=== PATIENT | male | born 1950 | race Caucasian/White ===

== ENCOUNTER 2024-08-13 10:25 | Day surgery (SDC) | payer OTHER, SELFPAY ==
--- NOTE | 2024-08-11 11:40 | EKG_ITS ---
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
[2024-08-11 13:41] LABS: Alanine Aminotransferase 26 U/L (10-49); Albumin, Serum 4.4 gm/dL (3.4-4.8); Albumin/Globulin Ratio 1.6 (1.2-2.2); Alkaline Phosphatase 83 U/L (46-116); Anion Gap 6 (7-16); Aspartate Amino Transferase 24 U/L (0-34); BUN/Creatinine Ratio 15 Ratio (12-20); Bilirubin,Total 0.4 mg/dL (0.3-1.2); Blood Urea Nitrogen 15 mg/dL (9-23); Calcium 9.8 mg/dL (8.3-10.6); Calcium (Corrected) 9.8 mg/dL (8.5-10.1); Carbon Dioxide 30.3 mMol/L (20.0-31.0); Chloride 108 mMol/L (98-107); Globulin 2.8 gm/dL (2.3-3.5); Glucose 91 mg/dL (74-106); Osmolality,Calculated 287 (275-295); Potassium 4.3 mMol/L (3.4-5.1); Sodium 144 mMol/L (136-145); Total Protein 7.2 gm/dL (5.7-8.2); eGFR > 60 See Note
[2024-08-12 13:05] VITALS: BMI 23.7
[2024-08-13] VITALS (8 sets, daily range): BP systolic 104–144; BP diastolic 66–87; PULSE 63–86; RESP 18–22; TEMP 36.1–36.9; O2SAT 95–98; BMI 22.3
[2024-08-13] MEDS: ALBUTEROL RT 2.5 MG/3 ML NEBU INH (11:22)
[2024-08-13] MEDS: RINGERS LACTATED 1000 ML 1,000 ML 20 ML IV (12:08)
--- NOTE | 2024-08-13 12:52 | SUR.PHASEII ---
pt received from OR in recovery bay 1. pt asleep but responds to voice, breathing unlabored on room air. v/s stable. report received from Samia BALLESTEROS.
--- NOTE | 2024-08-13 13:15 | SUR.PHASEII ---
pt able to tolerate oral fluids without diffuculty swallowing or nausea/vomiting.
--- NOTE | 2024-08-13 14:00 | SUR.PHASEII ---
pt awake and alert, breathing unlabored on room air. v/s stable. pt able to ambulate to wheelchair with steady gait. d/c instructions given with Dennise in room, all questions answered. pt d/c via wheelchair with all belongings.
== END 2024-08-13 14:00 | disposition home or self-care (01) ==
PROVIDERS: Anesthesiology; PCP Family Medicine; Referring Provider Internal Medicine Gastroenterology; Visit Provider Internal Medicine Gastroenterology
PROC: 0DJD8ZZ Inspection of Lower Intestinal Tract, Via Natural or Artificial Opening Endoscopic (ICD-10-PCS; CPT 45378; principal; 2024-08-13 11:30)
DX: Z12.11 Encounter for screening for malignant neoplasm of colon (principal); K64.9 Unspecified hemorrhoids; K57.30 Diverticulosis of large intestine without perforation or abscess without bleeding; D12.5 Benign neoplasm of sigmoid colon; Z01.810 Encounter for preprocedural cardiovascular examination
CPT/HCPCS: 45385; 45380; 36415; 80053; 93005; A4217; J7120

== ENCOUNTER → 2024-09-25 | Outpatient (BNVA) | payer OTHER, SELFPAY | END | disposition home or self-care (01) | PROVIDERS: PCP Family Medicine; Referring Provider Family Medicine; Visit Provider Urology | DX: N40.1 Benign prostatic hyperplasia with lower urinary tract symptoms (principal); N13.8 Other obstructive and reflux uropathy; R97.20 Elevated prostate specific antigen [PSA]; Z80.42 Family history of malignant neoplasm of prostate; J44.9 Chronic obstructive pulmonary disease, unspecified; J30.9 Allergic rhinitis, unspecified; Z85.828 Personal history of other malignant neoplasm of skin; F17.210 Nicotine dependence, cigarettes, uncomplicated | CPT/HCPCS: 81003; 99212; G0463 ==

== ENCOUNTER → 2024-11-06 | Outpatient (BNVA) | payer OTHER, SELFPAY | END | disposition home or self-care (01) | PROVIDERS: PCP Family Medicine; Referring Provider Family Medicine; Visit Provider Urology | DX: N40.1 Benign prostatic hyperplasia with lower urinary tract symptoms (principal); R39.12 Poor urinary stream; J44.9 Chronic obstructive pulmonary disease, unspecified; F17.210 Nicotine dependence, cigarettes, uncomplicated | CPT/HCPCS: 51741; 51798 ==

== ENCOUNTER → 2024-12-16 | Outpatient (CLI) | payer OTHER, SELFPAY ==
--- NOTE | 2024-12-16 12:00 | XR_ITS ---
Examination: CT chest, without intravenous contrast. Sagittal and coronal 2-D reconstructions. Exam date and time: 05/18/2025 1208 hours Comparison January 25, 2024 INDICATIONS: Smoking history 50 years, pulmonary nodules on CT chest December 16, 2024 CTDI:vol (mGy) 9.3 DLP: (mGycm) 389 Technique: Multiple 3.0 mm axial sections of the chest to been obtained. Bone and lung density settings are obtained. Sagittal and coronal 2-D reconstructions have been obtained. Low dose protocols were performed. One or more of the following dose reduction techniques were used; automated exposure control, adjustment of the mA and/or KV according to patient size, use of iterative reconstruction technique. Findings: AP dimension ascending thoracic aorta 4 cm Pulmonary artery segments are not enlarged No interval paratracheal tracheobronchial or bronchopulmonary adenopathy Numerous bilateral pulmonary nodules again depicted including new 10 mm pulmonary nodule right upper lobe and new 10 mm pulmonary nodule left upper lobe No pneumonia or pulmonary edema Liver is irregular in contour with small liver cysts in the left lobe No pancreatic mass No hydronephrosis or renal calculi Prominent osteopenia IMPRESSION: Progression of pulmonary nodular metastatic disease
== END | disposition home or self-care (01) ==
LOC: CCTX 11:47
PROVIDERS: PCP Family Medicine; Referring Provider Internal Medicine; Visit Provider Internal Medicine
DX: R91.8 Other nonspecific abnormal finding of lung field (principal); J44.9 Chronic obstructive pulmonary disease, unspecified; R06.02 Shortness of breath
CPT/HCPCS: 71250

== ENCOUNTER → 2025-01-26 | Outpatient (BNVA) | payer OTHER, SELFPAY | END | disposition home or self-care (01) | PROVIDERS: PCP Family Medicine; Referring Provider Family Medicine; Visit Provider Urology | DX: N40.1 Benign prostatic hyperplasia with lower urinary tract symptoms (principal); N13.8 Other obstructive and reflux uropathy; Z80.42 Family history of malignant neoplasm of prostate; C44.91 Basal cell carcinoma of skin, unspecified; J44.9 Chronic obstructive pulmonary disease, unspecified; E66.9 Obesity, unspecified; Z68.29 Body mass index [BMI] 29.0-29.9, adult; F17.210 Nicotine dependence, cigarettes, uncomplicated; Z85.828 Personal history of other malignant neoplasm of skin | CPT/HCPCS: 81003; 99212; G0463 ==

== ENCOUNTER 2025-03-25 09:54 | Outpatient (RCR) | payer OTHER, SELFPAY ==
--- NOTE | 2025-03-25 11:35 | CTCCONSULT_ITS ---
[facility] [address] [place], [place] [address] Consultation Note Date: 03/25/2025 MR#: [id number] Name: STEPHANIE MOHAN : 1950 Dx: C79.51 Secondary malignant neoplasm of bone Attending physician. Drew Leung MD Living [facility] Reason for consultation: Metastatic CA to spine status post T2-T6 posterior resection of tumor referred to the cancer treatment center. 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 CT scan chest on 12/16/2024 showed progression of pulmonary nodular disease including new 10 mm right upper lobe and also similar sized lesion left upper lobe with subcentimeter lesions elsewhere. PET scan 02/05/2025 revealed large 3.9 cm new irregular hypermetabolic expansile bony lesion right T4 transverse process and lamina SUV 30 with intraspinal tumor extension and severe central canal stenosis at T4 level. There was also increase in size of irregular pulmonary nodule anterior left upper lobe larger in size and new multiple small bilateral upper lobe and lower lobe pulmonary nodules of various sizes. Patient was urged to go to [facility] where he was admitted and underwent T2-T6 posterior instrumentation 02/27/2025. Lung biopsy was considered too high risk for pneumothorax due to COPD. 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 Had colonoscopy August 2024 with 1 polyp removed benign. AFP CA 19?9 CA125 CEA PSA LDH reportedly were within normal limits. According to patient still another PET scan and MRI likely of brain was ordered while he was inpatient. Port was placed prior to patient's discharge. Past Medical History: COPD Meds Trelegy albuterol Allergies none to meds Family history. Maternal grandmother had stomach cancer Social history. 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 Physical Exam: General: Well-appearing gentleman no acute distress HEENT: Atraumatic no cephalic extraocular is intact no oral lesion no cervical or supraclavicular adenopathy. CV: Chest clear to auscultation heart regular rate and rhythm ABD: Soft no organomegaly or tenderness Back. Well-healing scar upper back EXT: No signs of clubbing or edema. Assessment:1. Patient with adenocarcinoma likely of pulmonary origin according to immunostains, with significant T4 involvement with central canal stenosis status post T2-T6 decompression surgery at [facility] 02/27/2025. 2. PET scan prior to surgery shows extensive and progressive lung lesions, with new PET reportedly done at [facility] along with MRI likely of brain results not immediately known to us. Will attempt to get a copy soon. 3. Had colonoscopy done earlier this year unremarkable with normal tumor markers performed at [facility] including AFP CA125 CA 19?9 PSA and CEA. 4. Neurosurgeon who performed surgery 3 weeks ago will be seeing patient for follow-up next week for what appears to be well-healing scar on his upper back. 5. Shall schedule patient for treatment to the postop site upper thoracic region 3000 cGy in 10 fractions via VMAT. Side effects discussed. 6. I requested PD-L1 and foundation 1 on the path sample information of which should assist medical oncologist Dr. Martinez who will be seeing patient soon. Port has already been placed. 7. Thank you very much for allowing me to evaluate and manage this very nice person.. Cc: Drew Castillo MD [facility] Electronically signed by: Jeff Wells MD, DABR 03/25/2025 11:33 AM
--- NOTE | 2025-03-25 11:37 | CTCTXPLN_ITS ---
[facility] [address] [place], [place] [address] Physician Clinical Treatment Planning Note Date of Service: 03/25/2025 Name: STEPHANIE MOHAN : 1950 The patient has agreed to proceed with Radiation therapy. Tests and supporting medical records were interpreted to assist in defining the tumor location and extent of disease. Further imaging will be necessary to contour and delineate the volume to which the XRT will be provided. A. Treatment Intent: Palliative B. Modality: 6 MV C. Requested Technique: VMAT D. Treatment Site: T2-T6 E. Critical structures to be contoured on plan: F. In order to accomplish this plan, I am ordering/Prescribing the followin. Simulations (s) will be performed to accomplish a reproducible treatment position, to determine optimal treatment portals/beam arrangements, to design beam modifying devices and verify treatment portals on patient prior to the commencement of Radiation Therapy. C7-T7 2. Devices; for immobilization and beam shaping: Aqua Plast 3. CT Guidance for placement of XRT young Scan area: 4. Portal images Frequency: 5. Invivo transit dose measurement once per week on all VMAT patients. 6. Special Physics Consult Requested for: 7. Other requests: chemoradiation G. Dose Objectives: Curative Electronically signed by: Jeff Wells M.D. 03/25/2025 11:35 AM
--- NOTE | 2025-03-25 11:39 | CTCTXPLNST_ITS ---
Radiation Oncology Treatment Planning Sheet Name: STEPHANIE MOHAN MR#: [id number] : 1950 Dx: C79.51 Secondary malignant neoplasm of bone Date of Service: 03/25/2025 Account #: ?? Pt Treatment Intent: curative palliative other: Stage: Procedure CPT # Ordered Spec. Procedure 52075 1 Xie Complex (set-up) 00049 C-7 ? T7 ( treating T2- T 6) 1 Xie Simple 52653 IMRT Plan 79487 1 MLC Devices VMAT 54104 3 Xie 3 D 65377 TRTMT dev Complex 70639 Aqua Plast 1 TRTMT dev simple 34662 [place] [address] 6 Special Dosimetry 96567 Spec Physics 31339 Port Films 05917 SRS Cranial/1FX 07267 SBR 5 FX or Less /ex: 5 = 5 fx 73627 IMRT Simple 50466 3000 10 IMRT Complex 56937 IGRT 84522 10 Rad del Hashplex 6- 57206 Rad del Hashplex 05-27 29425 Cont Med Physics 02021 2 Treatment Planning 87166 1 Weekly Evaluation 46824 2 Rad del Hashplex 20 mev 21011 Special Port Plan 53929 TRTMT dev inter 07874 Isodose Complex 75440 Isodose simple 99083 Resp Motion Mgmt Simulation 22082 Placement of Fiducial Markers 75062 Electronically Signed By: Jeff Wells MD, RIMAR 03/25/2025 11:37 AM
== END 2025-04-07 23:59 | disposition home or self-care (01) ==
LOC: SCTC 09:54
PROVIDERS: PCP Family Medicine; Referring Provider Radiology Therapeutic Radiology; Visit Provider Radiology Therapeutic Radiology
DX: C34.90 Malignant neoplasm of unspecified part of unspecified bronchus or lung (principal); C79.51 Secondary malignant neoplasm of bone
CPT/HCPCS: 99214; G0463

== ENCOUNTER 2025-04-10 17:48 | Emergency (ER) | payer OTHER, SELFPAY ==
[2025-04-10 18:06] VITALS: BP 120/73; PULSE 116; RESP 26; TEMP 36.8; O2SAT 97; BMI 22.9
--- NOTE | 2025-04-10 18:06 | EKG_ITS ---
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
--- NOTE | 2025-04-10 18:14 | PD.EDADULT ---
ED General RME/HPI General Chief complaint: Shortness of Breath/Dyspnea Stated complaint: SOB Time Seen by Provider: 04/10/25 18:04 Arrival date/time: 04/10/25 17:48 RME / HPI RME / HPI narrative: 74 y/o male with PMHx of COPD (Gold stage E) and lung cancer comes in for an evaluation of nonexertional shortness of breath, [place], worsening, with associated dry cough but no chest pain. Patient reports that he was recently diagnosed with lung cancer and has been seeing Dr. Wells and Dr. Martinez at the cancer treatment center and recently got a port for chemotherapy and is scheduled to be set for radiation. He denies any fever or chills. Denies any recent travel or anyone around him feeling like this. He denies any sick contacts. Denies any history of heart failure. 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 Denies any swelling in his leg. He currently does not smoke. No other complaints at this time. Related Data Home Medications ?Medication ?Instructions ?Recorded ?Confirmed albuterol sulfate 90 mcg/actuation 2 inh inhalation Q4H PRN shortness 08/12/24 01/26/25 aerosol inhaler of breath or wheezing fluticasone fur. 100 mcg-umeclid 1 inh inhalation Q24H 08/12/24 01/26/25 62.5 mcg-vilant 25 mcg inhalat.powder (Trelegy Ellipta) Previous Rx's ?Medication ?Instructions ?Recorded azithromycin 250 mg tablet 250 mg PO QDAY 4 days #4 tabs 04/10/25 prednisone 10 mg tablet 20 mg (2 x 10 mg) PO QDAY 6 days 04/10/25 #12 tabs Allergies Allergy/AdvReac Type Severity Reaction Status Date / Time No Known Allergies Allergy Verified 01/26/25 10:58 Review of Systems Review of Systems Narrative Review of Systems: Constitutional: No fever, chills, fatigue, weakness, weight loss HEENT: No eye pain, vision loss, ear pain, hearing loss, dysphagia, Cardiovascular: No chest pain, palpitations, edema, pain with walking Respiratory: + cough, + shortness of breath, no wheezing GI: No NVD, abdominal pain, constipation, blood in stool, loss of appetite, heartburn Extremities: No presence of pitting edema MSK: No back pain, joint pain, joint swelling Neuro: No dizziness, numbness, weakness, headaches, seizures, tremors Psych: No anxiety, depression ED Exam Narrative Physical exam: General: AAOx3, NAD, appears barrel chested HEENT: Moist mucous membranes, conjunctiva clear, EOMI, PERRLA, Cardiovascular: S1, S2, radial pulses +2 bilat, tachycardic Pulmonary: Wheezing heard throughout lung young, poor airway entry, no crackles auscultated GI: No tenderness to light or deep palpitation, no guarding, rigidity, rebound tenderness or distension Extremities: No presence of trace or pitting edema in lower extremities bilaterally, dorsalis pedis pulses +2 bilaterally Neuro: AAOx3, no focal motor or sensory deficits in the UE or LE bilat Psych: Good judgement, thought and behavior Course Quality Measures none Orders Category Date Time Status Bedside COVID-19 Antigen Test NOW Care 04/10/25 18:40 Active Bedside Influenza A&B Antigen Test NOW Care 04/10/25 18:[address] Screening NOW Care 04/10/25 19:24 Active EKG (ED ONLY) *Do not use* NOW Care 04/10/25 18:06 Completed Insert IV NOW Care 04/10/25 18:[address] abdomen pelvis w con Stat Exams 04/10/25 19:[address] angio chest Stat Exams 04/10/25 19:24 Completed EKG (ED Only) Stat Exams 04/10/25 18:06 Draft XR chest 1V portable Stat Exams 04/10/25 18:32 Completed B-Type Natriuretic Peptide Stat Lab 04/10/25 18:22 Completed Blood Culture (Lab) Stat Lab 04/10/25 18:25 Received C-Reactive Protein Stat Lab 04/10/25 18:22 Completed CBC Stat Lab 04/10/25 18:22 Completed Comprehensive Metabolic Panel Stat Lab 04/10/25 18:22 Completed D-Dimer Stat Lab 04/10/25 18:00 Completed Lactic Acid [Lactate (Lactic Acid)] Stat Lab 04/10/25 18:40 Completed Magnesium Stat Lab 04/10/25 18:22 Completed Procalcitonin Stat Lab 04/10/25 18:22 Completed Sed Rate (ESR) Stat Lab 04/10/25 18:22 Completed Sputum Culture and Gram Stain Stat Lab 04/10/25 20:03 Results Troponin I Stat Lab 04/10/25 18:22 Completed UA, C/S IF [Urinalysis, C/S if Indicated] Stat Lab 04/10/25 21:07 Completed ALBUTEROL RT 3ml [Proventil Rt 3ml] Med 04/10/25 18:14 Discontinued 2.5 mg INH X1 ONE Azithromycin Inj [Zithromax Inj] 500 mg Med 04/10/25 18:48 Discontinued Sodium Chloride 0.9% 250 ml [Ns] 250 ml IV X1 Levalbuterol Rt [Xopenex Rt Marlen] Med 04/10/25 18:40 Discontinued 2.5 mg INH X1 ONE Magnesium Sulfate 2 GM Ivpb [Magnesium Sulfate Ivpb] Med 04/10/25 18:40 Discontinued 2 gm in 50 ml IV X1 MethylPREDNISolone.* [SoluMEDROL Inj] Med 04/10/25 18:40 Discontinued 125 mg IVP X1 ONE Sodium Chloride Rt Marlen 0.9% [NS Rt Marlen 0.9%] Med 04/10/25 18:40 Active 6 ml INH PRN PRN Sodium Chloride Rt Marlen 10% [NS Rt Marlen 10%] Med 04/10/25 20:01 Discontinued 5 ml INH X1 ONE Oxygen Delivery NOW RT 04/10/25 18:05 Active Sputum Induction PRN RT 04/10/25 20:15 Ordered Vital Signs Vital signs: Vital Signs Temperature 98.2 F 04/10/25 18:06 Pulse Rate 116 H 04/10/25 18:06 Respiratory Rate 26 H 04/10/25 18:06 Blood Pressure 120/73 04/10/25 18:06 Pulse Oximetry (%) 97 04/10/25 18:06 Oxygen Delivery Method Nasal Cannula 04/10/25 18:06 Oxygen Flow Rate 3 04/10/25 18:06 Discharge Plan Plan Patient Disposition: HOME (Self Care) Health Concerns: Discharge instructions Follow-up with your PCP within 1 week Take your prednisone, steroid, as prescribed Take your Azithromycin as prescribed Follow up with your Cancer team, Dr. Wells and Dr. Martinez outpatient AVOID SMOKING and SECOND HAND SMOKING EXPOSURE Return to ED if your symptoms worsen or return Prescriptions/Referrals Prescriptions/Med Rec: New azithromycin 250 mg tablet 250 mg PO QDAY 4 Days Qty: 4 0RF Rx Instructions: Take one tablet by mouth every day prednisone 10 mg tablet 20 mg PO QDAY 6 Days Qty: 12 0RF Rx Instructions: Take two tablets by mouth every day Continued albuterol sulfate 90 mcg/actuation HFA aerosol inhaler 2 inh INHALATION Q4H PRN (Reason: shortness of breath or wheezing) Sky Gilletteta 100-62.5-25 mcg blister with device 1 inh INHALATION Q24H Patient Comments: INHALE 1 PUFF BY MOUTH ONCE DAILY Referrals: Drew Leung MD [Primary Care Provider] - In 1 week Problem List Clinical Impression: Acute exacerbation of chronic obstructive airways disease Patient/Caregiver Discharge Instructions Education Materials: Cancer Lung Dc, COPD Meds Print Language: Austrian Stand Alone Forms: Alicia Award Info., Patient Portal Info Letter MDM Narrative MDM hospital course (for use when minimal MDM required): 1814: EKG, chest x-ray, labs, breathing treatments, azithromycin, steroid ordered 2004: Continue with breathing treatments, reviewed chest x-ray which shows parenchymal disease, EKG reviewed as above, labs reviewed, will initiate sputum culture. COVID and FLU negative. 2246: CTA negative. Pt on home oxygen baseline, saturating 97%. Pt medically cleared for discharge. Will initiate prednisone and Zithromax outpatient with strict ER precautions. EKG Interpretation EKG #1: EKG Interpretation: QT 315, sinus tachycardia, no STEMI, Medication Administration(s) Medication Administration History Sodium Chloride (Sodium Chloride Rt Marlen 0.9% 3 Ml Nebu) 6 ml INH PRN PRN PRN Reason: SOLN Stop: 05/10/25 18:39 Last Admin: 04/10/25 19:00 Dose: 6 ml Documented By: NAOMI Discontinued Medications Albuterol (Albuterol Rt 2.5 Mg/3 Ml Nebu) 2.5 mg INH X1 ONE Stop: 04/10/25 18:15 Last Admin: 04/10/25 18:25 Dose: 2.5 mg Documented By: ARGENIS Magnesium Sulfate (Magnesium Sulfate Ivpb) 2 gm in 50 mls @ 25 mls/hr IV X1 ONE Stop: 04/10/25 20:39 Last Infusion: 04/10/25 21:55 Dose: Infused Documented By: Admin: 04/10/25 19:55 Dose: 25 mls/hr Documented By: KASIE Azithromycin 500 mg/ Sodium (Chloride) 250 mls @ 250 mls/hr IV X1 ONE Stop: 04/10/25 19:47 Last Infusion: 04/10/25 20:15 Dose: Infused Documented By: Admin: 04/10/25 19:13 Dose: 250 mls/hr Documented By: KASIE Levalbuterol HCl (Levalbuterol Rt 1.25 Mg/0.5 Ml Nebu) 2.5 mg INH X1 ONE Stop: 04/10/25 18:41 Last Admin: 04/10/25 19:00 Dose: 2.5 mg Documented By: NAOMI Methylprednisolone Sodium Succinate (Methylprednisolone Sod Succ 62.5 Mg/Ml 2ml Vial) 125 mg IVP X1 ONE Stop: 04/10/25 18:41 Last Admin: 04/10/25 19:09 Dose: 125 mg Documented By: KASIE Sodium Chloride (Sodium Chloride Rt 10% 15 Ml Nebu) 5 ml INH X1 ONE Stop: 04/10/25 20:02 Last Admin: 04/10/25 21:35 Dose: Not Given Documented By: NAOMI Non-Admin Reason: Other, see note
[2025-04-10 18:25] VITALS: PULSE 112; PULSE 115; RESP 22; O2SAT 100
[2025-04-10] MEDS: ALBUTEROL RT 2.5 MG/3 ML NEBU INH (18:25)
[2025-04-10 18:26] VITALS: PULSE 124; RESP 28; O2SAT 95
--- NOTE | 2025-04-10 18:32 | XR_ITS ---
Examination: AP chest single view Technique: Upright AP chest portable chest single view Date and time: April 10, 2025, 1835 hrs. Indications: Shortness of breath today. Comparison: July 19, 2023 Findings: COPD with significant hyperexpansion Parenchymal disease in the left upper lobe which may be cavitary Right internal jugular Port-A-Cath tip satisfactory position Normal heart size Impression: Suspicious for cavitary parenchymal disease left upper lobe, consider repeat CT chest without contrast follow-up
[2025-04-10 18:36] LABS: Basophils # (Auto) 0.1 Thou/mm3 (0.0-0.2); Basophils % (Auto) 1 % (0-2.5); Eosinophils # (Auto) 0.0 Thou/mm3 (0.0-0.5); Eosinophils % (Auto) 0 % (0-10); Hematocrit 38.8 % (41.0-53.0); Hemoglobin 13.3 g/dL (13.5-16.0); Immature Granulocytes Auto 0.06 Thou/mm3 (0.00-0.00); Lymphocytes # (Auto) 1.0 Thou/mm3 (1.0-4.8); Lymphocytes % (Auto) 6 % (10-50); Mean Corpuscular HGB Conc 34.3 g/dl (31.0-37.0); Mean Corpuscular Hemoglobin 33.8 pg (25.0-35.0); Mean Corpuscular Volume 99 fL (80-100); Monocytes # (Auto) 1.2 Thou/mm3 (0.0-0.8); Monocytes % (Auto) 8 % (0-12); Neutrophils # (Auto) 13.0 Thou/mm3 (1.8-7.7); Neutrophils % (Auto) 85 % (37-80); Nucleated Red Blood Cell # 0.00 Thou/mm3 (0.00-0.00); Nucleated Red Blood Cell % 0 /100 WBC (0); Platelet Count 164 Thou/mm3 (140-440); RDW Standard Deviation 47.7 fL (35.1-43.9); Red Blood Count 3.94 Miln/mm3 (4.50-5.90); White Blood Count 15.3 Thou/mm3 (3.8-10.6)
[2025-04-10 18:50] LABS: B-Type Natriuretic Peptide 23 pg/mL (0-100)
[2025-04-10] MEDS: SODIUM CHLORIDE RT SOL 0.9% 3 ML NEBU 6 ML INH (19:00)
[2025-04-10] MEDS: LEVALBUTEROL RT 1.25 MG/0.5 ML NEBU 2.5 MG INH (19:00)
[2025-04-10 19:03] LABS: Alanine Aminotransferase 10 U/L (10-49); Albumin, Serum 4.1 gm/dL (3.4-4.8); Albumin/Globulin Ratio 1.6 (1.2-2.2); Alkaline Phosphatase 74 U/L (46-116); Anion Gap 8 (7-16); Aspartate Amino Transferase 14 U/L (0-34); BUN/Creatinine Ratio 13 Ratio (12-20); Bilirubin,Total 0.9 mg/dL (0.3-1.2); Blood Urea Nitrogen 12 mg/dL (9-23); Calcium 9.1 mg/dL (8.3-10.6); Calcium (Corrected) 9.1 mg/dL (8.5-10.1); Carbon Dioxide 23.8 mMol/L (20.0-31.0); Chloride 108 mMol/L (98-107); Creatinine (Component) 0.9 mg/dL (0.6-1.3); Estimated Creatinine Clearance 79.3 mL/min (>60); Globulin 2.5 gm/dL (2.3-3.5); Glucose 128 mg/dL (74-106); Magnesium 1.9 mg/dL (1.6-2.6); Osmolality,Calculated 281 (275-295); Potassium 3.9 mMol/L (3.4-5.1); Sodium 140 mMol/L (136-145); Total Protein 6.6 gm/dL (5.7-8.2); Troponin I < 0.020 ng/mL (0.0-0.045); eGFR > 60 See Note
[2025-04-10 19:03] LABS: D-Dimer 1590 ng/mL (<600)
[2025-04-10 19:09] VITALS: PULSE 116; RESP 24; O2SAT 100
[2025-04-10] MEDS: MethylPREDNISolone SOD SUCC 62.5 MG/ML 2ML VIAL 125 MG IVP (19:09)
[2025-04-10] MEDS: AZITHROMYCIN INJ 500 MG in SODIUM CHLORIDE 0.9% 250 ML 250 ML 250 MG IV (19:13)
--- NOTE | 2025-04-10 19:18 | PC.RT ---
Attempted ABG x2 and unsucccessful. Pt said he did not want any more attempts.Informed Dr. Maynard made aware.
--- NOTE | 2025-04-10 19:24 | XR_ITS ---
Examination: CTA chest with intravenous contrast 2-D reconstructions 3-D reconstructions, vascular Date and time of exam: April 10, 2025, 2032 hrs., Comparison December 16, 2024 Indications: Chest pain abdominal pain shortness of breath today, diagnosis smoking history, progression of pulmonary nodular metastatic disease on CT chest December 16, 2024 CTDI: vol (mGy) 26.39 DLP: (mGycm) 638 Technique: Multiple axial sections of the thorax have been obtained. 3 mm slice thickness, from below the hemidiaphragms to above the apices of the lungs. Mediastinal and lung density settings have been obtained. 2-D sagittal and coronal reconstructions. 3-D angiographic renderings, 3-D volume renderings, 3D post processing, vascular maximum intensity projections obtained. Contrast administered is 100 cc Isovue-370. Low dose protocols were performed. One or more of the following dose reduction techniques were used; automated exposure control, adjustment of the mA and/or KV according to patient size, use of iterative reconstruction technique. Findings: No thoracic aortic aneurysmal dilatation or dissection No pulmonary artery filling defects Mild bilateral hilar lymphadenopathy COPD with multiple areas of airspace destruction Enlarging multiple pulmonary nodules bilaterally consistent with progression of pulmonary nodular metastatic disease No lobar pneumonia or pulmonary edema Liver mildly irregular in contour no focal liver or splenic lesions noted No pancreatic mass Minimal nodular thickening of the adrenal glands Kidneys partially visualized no hydronephrosis Prominent osteopenia with upper thoracic laminectomies and thoracic partial fusion Impression: Negative for pulmonary artery emboli Progression of pulmonary nodular metastatic disease compared with December 16, 2024
--- NOTE | 2025-04-10 19:25 | XR_ITS ---
Examination: CT abdomen with intravenous contrast CT pelvis with intravenous contrast 2-D coronal reconstructions 2-D sagittal reconstructions Date and time of exam:April 10, 2025, 2032 hrs[address] chest December 16, 2024. Indications: Smoking history 50 years, progression of pulmonary nodular metastatic disease on CT chest December 16, 2024, shortness of breath today abdominal pain CTDI: vol (mGy) 11.3 DLP: (mGycm) 623 Technique: Multiple axial sections of the abdomen and pelvis have been obtained. 64 slice high-resolution scanner used. 3 mm axial sections have been obtained, post intravenous injection 60 cc Isovue-370 2-D sagittal coronal reconstructions Nodose protocols, automated exposure control, adjustment MA KV according to patient size Findings: Small bowel cysts upper left lobe of the liver No solid liver lesions No gallstones Spleen is not enlarged No pancreatic mass Nodular thickening left adrenal gland Aorta normal size No renal or ureteral calculi, no hydronephrosis No bowel obstruction Normal appendix Colonic diverticulosis, no diverticulitis Transverse prostate dimension 4.9 cm Mild thickening urinary bladder wall up to 5 mm Prominent osteopenia with moderate to advanced degenerative disc disease L4-L5, L5-S1 Impression: No solid liver lesions Minimal nodular thickening left adrenal gland No abdominal or pelvic lymphadenopathy No renal or ureteral calculi, no hydronephrosis Normal appendix Colonic diverticulosis, no diverticulitis Moderate prostatomegaly Mild thickening urinary bladder wall, consider cystitis, early urinary tract outflow obstruction secondary to prostatomegaly
[2025-04-10 19:46] LABS: Sed Rate (ESR) 37 mm/hr (0-20)
[2025-04-10 19:55] LABS: Lactate (Lactic Acid) 1.0 mMol/L (0.4-2.0)
[2025-04-10] MEDS: Magnesium Sulfate 2 GM Ivpb 2 GM/50 ML BAG IV (19:55)
--- NOTE | 2025-04-10 19:55 | PC.NURSE ---
Pt became winded trying to cough up phglem, requested an oxymask. Pt placed on an oxymask at 4liters and RT/MD notified.
[2025-04-10 20:01] LABS: C-Reactive Protein 23.0 mg/dL (0.0-0.9); Procalcitonin 0.26 ng/ml (0.0-0.49)
[2025-04-10 21:03] VITALS: BP 114/67; PULSE 114; RESP 22; TEMP 36.8; O2SAT 99
[2025-04-10 21:28] LABS: Collection Type, Urine Clean Catch
--- NOTE | 2025-04-10 21:35 | PC.RT ---
LESLI Burnett was able to collect sputum, pt had expectorated and sent to lab.
[2025-04-10 21:49] LABS: Bilirubin,Urine Negative (Negative); Blood,Urine 1+ (Negative); Clarity,Urine Clear (Clear/Hazy); Color,Urine Yellow (Lt Yel-Yel); Culture Indicated,Urine Not Indicated; Glucose, Urine Negative (Negative); Ketones,Urine 2+ (Negative); Leukocyte Esterase,Urine Negative (Negative); Nitrite,Urine Negative (Negative); PH,Urine 6.0 (5.0-7.0); Protein,Urine Trace (Neg - Trace); RBC,Urine 8 /hpf (0-3); Squamous Epithelial Cell,Urine 1 /hpf (0-5); Urobilinogen,Urine Negative mg/dL (0.0-1.0); WBC,Urine 1 /hpf (0-5)
[2025-04-10 21:56] LABS: Specific Gravity,Urine 1.020 (1.001-1.035)
[2025-04-10 23:15] VITALS: BP 113/67; PULSE 96; RESP 22; TEMP 36.8; O2SAT 97
== END 2025-04-10 23:16 | disposition home or self-care (01) ==
PROVIDERS: Emergency Medicine; PCP Internal Medicine
DX: J44.1 Chronic obstructive pulmonary disease with (acute) exacerbation (principal)
CPT/HCPCS: 36415; 36600; 71045; 71275; 74177; 80053; 81001; 82803; 83605; 83735; 83880; 84145; 84484; 85025; 85379; 85652; 86140; 87040; 87077; 87186; 87205; 87400; 87811; 93005; 94640; 96365; 96366; 96375; 99284; A4649; J0456; J2919; J3475; J7050; Q9967

== ENCOUNTER 2025-04-12 09:58 | Inpatient (IN) | payer OTHER, MEDICARE, SELFPAY ==
[2025-04-12] VITALS (15 sets, daily range): BP systolic 123–164; BP diastolic 73–105; PULSE 79–144; RESP 20–41; TEMP 36.2–38.2; O2SAT 97–100; BMI 19.8; BMI 21.2
--- NOTE | 2025-04-12 10:18 | XR_ITS ---
Examination: AP chest single view Technique one AP portable chest single view Date and time: April 12, 2025, 10:30 AM, comparison April 10, 2025 Findings: Significant hyperexpansion Normal heart size On the current study no active pneumonia Right internal jugular Port-A-Cath tip satisfactory position Impression: COPD Mild bronchitis pattern No lobar pneumonia
--- NOTE | 2025-04-12 10:18 | EKG_ITS ---
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
[2025-04-12] MEDS: cefTRIAXone/D5w 1gm IV premix 1 GM/50 ML BAG IV (10:29)
[2025-04-12] MEDS: MethylPREDNISolone SOD SUCC 62.5 MG/ML 2ML VIAL 125 MG IVP (10:29)
[2025-04-12 10:35] LABS: Lactate (Lactic Acid) 1.9 mMol/L (0.4-2.0)
[2025-04-12 10:38] LABS: Basophils # (Auto) 0.0 Thou/mm3 (0.0-0.2); Basophils % (Auto) 0 % (0-2.5); Eosinophils # (Auto) 0.1 Thou/mm3 (0.0-0.5); Eosinophils % (Auto) 0 % (0-10); Hematocrit 42.6 % (41.0-53.0); Hemoglobin 13.8 g/dL (13.5-16.0); Immature Granulocytes Auto 0.10 Thou/mm3 (0.00-0.00); Lymphocytes # (Auto) 1.4 Thou/mm3 (1.0-4.8); Lymphocytes % (Auto) 8 % (10-50); Mean Corpuscular HGB Conc 32.4 g/dl (31.0-37.0); Mean Corpuscular Hemoglobin 32.6 pg (25.0-35.0); Mean Corpuscular Volume 101 fL (80-100); Monocytes # (Auto) 2.0 Thou/mm3 (0.0-0.8); Monocytes % (Auto) 11 % (0-12); Neutrophils # (Auto) 14.3 Thou/mm3 (1.8-7.7); Neutrophils % (Auto) 80 % (37-80); Nucleated Red Blood Cell # 0.00 Thou/mm3 (0.00-0.00); Nucleated Red Blood Cell % 0 /100 WBC (0); Platelet Count 266 Thou/mm3 (140-440); RDW Standard Deviation 49.8 fL (35.1-43.9); Red Blood Count 4.23 Miln/mm3 (4.50-5.90); White Blood Count 17.9 Thou/mm3 (3.8-10.6)
--- NOTE | 2025-04-12 10:45 | PD.EDSOB ---
ED SOB =RME/HPI General Chief Complaint: Shortness of Breath/Dyspnea Stated Complaint: SOB Time Seen by Provider: 04/12/25 10:50 Arrival date/time: 04/12/25 09:58 Limitations: no limitations RME / HPI RME / HPI Narrative: DR. TAM MAIN ED EVALUATION: 74-year-old male with past medical history significant for lung cancer, and COPD presents to the Emergency Department via EMS for shortness of breath that has been progressively worsening over the past few weeks. EMS placed the patient on 15 liters of oxygen via non-rebreather mask. The patient denies chest pain, fever, or cough. Patient was recently in the emergency department yesterday for similar symptoms, went home with feeling somewhat better. Coming in and feels that he is having a hard time catching his breath. Patient usually on 2 to 3 years of oxygen however over the last week has had increased oxygen requirements. Endorses fever, denies chest pain palpitations abdominal pain dysuria bloody stools recent travel sick contacts. Patient does not have allergies to medications Related Data Home Medications ?Medication ?Instructions ?Recorded ?Confirmed albuterol sulfate 90 mcg/actuation 2 inh inhalation Q4H PRN shortness 08/12/24 01/26/25 aerosol inhaler of breath or wheezing fluticasone fur. 100 mcg-umeclid 1 inh inhalation Q24H 08/12/24 01/26/25 62.5 mcg-vilant 25 mcg inhalat.powder (Trelegy Ellipta) Previous Rx's ?Medication ?Instructions ?Recorded azithromycin 250 mg tablet 250 mg PO QDAY 4 days #4 tabs 04/10/25 prednisone 10 mg tablet 20 mg (2 x 10 mg) PO QDAY 6 days 04/10/25 #12 tabs Allergies Allergy/AdvReac Type Severity Reaction Status Date / Time No Known Allergies Allergy Verified 01/26/25 10:58 Review of Systems Review of Systems Systems Reviewed: All systems reviewed, normal except as documented Past Medical History Past Medical History RESPIRATORY: Positive Chronic Obstructive Pulmonary Disease (COPD) and Asthma MUSCULOSKELETAL: Positive Bone Cancer OTHER HISTORY: Positive Cancer and Lung Cancer Social History SMOKING STATUS: Never smoker 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 ED Exam General Limitations: Present no limitations General appearance: Present alert and other (Chronically ill appearing with acute decompensation; diaphoretic ) Head Head exam: Present atraumatic, normocephalic and normal inspection Eye Eye exam: Present normal appearance, PERRL and EOMI ENT ENT exam: Present normal exam and normal oropharynx Neck Neck exam: Present normal inspection, full ROM and trachea midline Chest Chest inspection: Present normal inspection and symmetric chest wall rise Respiratory Respiratory exam: Present respiratory distress (diminished breath sounds bilaterally) Cardiovascular Cardiovascular exam: Present normal rhythm and tachycardia Abdominal Exam Abdominal exam: Present soft; Absent distention, tenderness or guarding Extremities Exam Extremities exam: Present normal inspection and full ROM Back Exam Back exam: Present normal inspection and full ROM Neurological Exam Neurological exam: Present alert, oriented X3 and CN II-XII intact Psychiatric Psychiatric exam: Present normal affect and normal mood Skin Skin exam: Present warm, intact, normal color and diaphoresis Course Quality Measures none Orders Category Date Time Status Bedside Blood Glucose NOW Care 04/12/25 10:18 Active Bedside COVID-19 Antigen Test NOW Care 04/12/25 13:[address] Screening NOW Care 04/12/25 10:19 Completed Feather Separator Q4H START 00 Care 04/12/25 10:18 Active Insert IV NOW Care 04/12/25 10:18 Completed Strict Intake and Output Routine Care 04/12/25 10:18 Ordered XR chest 1V SEPSIS PROTOCOL Stat Exams 04/12/25 10:18 Completed ABG [Arterial Blood Gas] Stat Lab 04/12/25 13:45 Ordered BNP [B-Type Natriuretic Peptide] Stat Lab 04/12/25 10:09 Completed Blood Culture (Lab) Stat Lab 04/12/25 10:09 Received CBC Stat Lab 04/12/25 10:09 Completed Comprehensive Metabolic Panel Stat Lab 04/12/25 10:09 Completed Influenza A & B Rapid Panel Stat Lab 04/12/25 13:45 Ordered Lactate (Lactic Acid) Stat Lab 04/12/25 10:09 Completed Partial Thromboplastin Time Stat Lab 04/12/25 10:09 Completed Procalcitonin Stat Lab 04/12/25 10:09 Completed Prothrombin Time with INR Stat Lab 04/12/25 10:09 Completed Troponin I Stat Lab 04/12/25 10:09 Completed Urinalysis Stat Lab 04/12/25 12:16 Completed Urine Culture Stat Lab 04/12/25 12:16 Received ALBUTEROL RT 0.5ml [Proventil Rt 0.5ml] Med 04/12/25 10:18 Discontinued 10 mg INH X1 ONE ALBUTEROL RT 0.5ml [Proventil Rt 0.5ml] Med 04/12/25 12:39 Discontinued 10 mg INH X1 ONE Acetaminophen Tab [Tylenol Tab] Med 04/12/25 11:22 Discontinued 650 mg PO X1 ONE Azithromycin Inj [Zithromax Inj] 500 mg Med 04/12/25 12:45 Pending Sodium Chloride 0.9% 250 ml [Ns] 250 ml IV QDAY Azithromycin Inj [Zithromax Inj] 500 mg Med 04/12/25 13:00 Active Sodium Chloride 0.9% 250 ml [Ns] 250 ml IV X1 Ipratropium [place] Rt Marlen [Atrovent Rt [place]] Med 04/12/25 10:18 Discontinued 1 mg INH X1 ONE Magnesium Sulfate 2 GM Ivpb [Magnesium Sulfate Ivpb] Med 04/12/25 12:40 Active 2 gm in 50 ml IV X1 MethylPREDNISolone.* [SoluMEDROL Inj] Med 04/12/25 10:18 Discontinued 125 mg IVP X1 ONE Ringers Lactated 1000 ml [Lactated Ringers] 1,000 ml Med 04/12/25 12:40 Discontinued IV 999 mls/hr Ringers Lactated 500 ml [Lactated Ringers] 500 ml Med 04/12/25 11:22 Discontinued IV 500 mls/hr Sodium Chloride Rt [place] 0.9% [NS Rt [place] 0.9%] Med 04/12/25 10:18 Active 3 ml INH PRN PRN cefTRIAXone/D5w 1gm IV premix [Rocephin/D5w 1gm IV Med 04/12/25 10:18 Discontinued premix] 1 gm in 50 ml IV STAT BiPAP / CPAP NOW RT 04/12/25 13:41 Active EKG (RT) Stat RT 04/12/25 10:18 Draft Oxygen Delivery NOW RT 04/12/25 10:18 Active Vital Signs Vital signs: Vital Signs Temperature 100.8 F H 04/12/25 10:02 Pulse Rate 144 H 04/12/25 10:02 Respiratory Rate 26 H 04/12/25 10:02 Blood Pressure 164/105 H 04/12/25 10:02 Pulse Oximetry (%) 100 04/12/25 10:02 Oxygen Delivery Method Oxy Mask 04/12/25 10:02 Oxygen Flow Rate 15 04/12/25 10:02 Shortness of Breath / Dyspnea MDM Narrative MDM Narrative:: Patient is a 74-year-old male with an emergency department concerns for shortness of breath. Vital signs and exam as listed. Concern for viral syndrome pneumonia, ACS CHF exacerbation pulmonary embolus among others. Ordered sepsis order set. Provided patient with antibiotics. Also provided him with fluids offered CT angio of the chest however patient declined. Provided patient with steroids and breathing treatment. Labs with evidence of leukocytosis 17.9, no left shift. No significant acute metabolic disturbance. Lactic acid normal. No evidence of acute renal dysfunction. No transaminitis BNP normal. Troponin not elevated, procalcitonin on the upper limit of normal. EKG performed today at 1020 3 in the morning notable for sinus tachycardia, heart rate 131, short HI, normal QT, nonspecific T wave changes, not a cardiac alert. Chest x-ray with a bronchitis pattern. Urinalysis On reevaluation patient continues to feel dyspneic and short of breath. Will provide patient with additional breathing treatment, magnesium, fluids. Per chart review patient came to the emergency department yesterday for similar symptoms. Had CT scan of the chest abdomen pelvis. Imaging identified diverticulosis, minimal nodular thickening of the left adrenal gland, mild thickening of the urinary bladder mild bilateral hilar lymphadenopathy, COPD, enlarging pulmonary nodules bilaterally that have progressed from prior consistent with metastatic disease, osteopenia. Otherwise no other abnormalities. No evidence of pulmonary embolus or dissection yesterday. 1:42p patient continues to be short of breath, diminished. Will start patient on BiPAP and admit patient to the hospitalist service. Discussed with team B for admission Brenda Oliva am scribing for and in the presence of Dr. Tam. Patient data External records reviewed:: [facility] previous records and EMS form Clinical information provided by:: patient and EMS Social determinants that could affect healthcare access:: none Patient has the following chronic illnesses:: lung cancer, bone cancer, and asthma How is presenting disease/condition affected by chronic disease/condition?: caused by Evaluation data The following diagnostics were reviewed and interpreted by me:: lab results, radiology exam(s) and EKG tracing(s) (My interpretation: EKG performed at 1023 hours, sinus tachycardia, rate 131, normal intervals, non specific T wave changes, not a cardiac alert) Lab and/or radiology exams considered but not ordered:: none Interpretation Summary: See MDM narrative above. RADIOLOGY Procedure(s): XR chest 1V SEPSIS PROTOCOL Accession Number(s): [id number] cc: Rashid Young MD; NO PRIMARY/FAMILY,PHYSICIAN; Pina Tam MD~ Examination: AP chest single view Technique one AP portable chest single view Date and time: April 12, 2025, 10:30 AM, comparison April 10, 2025 Findings: Significant hyperexpansion Normal heart size On the current study no active pneumonia Right internal jugular Port-A-Cath tip satisfactory position Impression: COPD Mild bronchitis pattern No lobar pneumonia Dictated By: Rashid Young MD Medications / Prescriptions Medications or Prescriptions considered but not ordered:: none Medication administrations:: Medication Administration History Magnesium Sulfate (Magnesium Sulfate Ivpb) 2 gm in 50 mls @ 25 mls/hr IV X1 ONE Stop: 04/12/25 14:39 Last Admin: 04/12/25 13:08 Dose: 25 mls/hr Documented By: EF Azithromycin 500 mg/ Sodium (Chloride) 250 mls @ 250 mls/hr IV QDAY RUY Stop: 04/19/25 12:44 Azithromycin 500 mg/ Sodium (Chloride) 250 mls @ 250 mls/hr IV X1 ONE Stop: 04/12/25 13:59 Last Admin: 04/12/25 13:05 Dose: 250 mls/hr Documented By: HELENA Sodium Chloride (Sodium Chloride Rt [place] 0.9% 3 Ml Nebu) 3 ml INH PRN PRN PRN Reason: SOLN Stop: 05/12/25 10:17 Discontinued Medications Acetaminophen (Acetaminophen 325 Mg Tablet) 650 mg PO X1 ONE Stop: 04/12/25 11:23 Last Admin: 04/12/25 11:26 Dose: 650 mg Documented By: HELENA Albuterol (Albuterol Rt 2.5 Mg/0.5 Ml Nebu) 10 mg INH X1 ONE Stop: 04/12/25 10:19 Last Admin: 04/12/25 10:49 Dose: 10 mg Documented By: KENNEDI Albuterol (Albuterol Rt 2.5 Mg/0.5 Ml Nebu) 10 mg INH X1 ONE Stop: 04/12/25 12:40 Last Admin: 04/12/25 12:55 Dose: 10 mg Documented By: KENNEDI Ceftriaxone Sodium/Dextrose (Rocephin/D5w 1gm Iv Premix) 1 gm in 50 mls @ 100 mls/hr IV STAT STA Stop: 04/12/25 10:47 Last Infusion: 04/12/25 10:59 Dose: Infused Documented By: Admin: 04/12/25 10:29 Dose: 100 mls/hr Documented By: HELENA Lactated Ringer's (Lactated Ringers) 500 mls @ 500 mls/hr IV .Q1H ONE Stop: 04/12/25 12:21 Last Infusion: 04/12/25 12:27 Dose: Infused Documented By: Admin: 04/12/25 11:27 Dose: 500 mls/hr Documented By: EF Lactated Ringer's (Lactated Ringers) 1,000 mls @ 999 mls/hr IV .Q1H1M ONE Stop: 04/12/25 13:40 Last Admin: 04/12/25 13:05 Dose: 999 mls/hr Documented By: HELENA Ipratropium [place] (Ipratropium Rt 0.5 Mg/ 2.5 Ml Nebu) 1 mg INH X1 ONE Stop: 04/12/25 10:19 Last Admin: 04/12/25 10:49 Dose: 1 mg Documented By: KENNEDI Methylprednisolone Sodium Succinate (Methylprednisolone Sod Succ 62.5 Mg/Ml 2ml Vial) 125 mg IVP X1 ONE Stop: 04/12/25 10:19 Last Admin: 04/12/25 10:29 Dose: 125 mg Documented By: EF see above Consultations Consultation(s) initiated? (list below): Yes Diagnosis Shortness of Breath Differential Diagnosis: other (Pleural effusion secondary to malignancy, COPD/asthma exacerbation, and pneumonia.) Most likely diagnosis given after review of the tests above:: Acute hypoxic respiratory failure, SIRS, COPD exacerbation Admission Indicated Admission indicated?: indicated Admission Request Was there a request for admission?: Yes Admission Attestation Admission request attestation: Discussed case with [] from Hospitalist service regarding admission. Discussed patients ED course, exam findings, labs, and radiology results. The Hospitalist [agrees,declines] to accept the patient for admission. Disposition Plan Disposition Plan: Admit Critical Care Time Critical Care Time Critical Care Time: Yes Total Critical Care Time (min.): 45 Attestation: Total critical care time: Approximately?45?minutes Due to a high probability of clinically significant, life threatening deterioration, the patient required my highest level of preparedness to intervene emergently and I personally spent this critical care time directly and personally managing the patient. This critical care time included obtaining a history; examining the patient; pulse oximetry; ordering and review of studies; arranging urgent treatment with development of a management plan; evaluation of patient's response to treatment; frequent reassessment; and, discussions with other providers. This critical care time was performed to assess and manage the high probability of imminent, life-threatening deterioration that could result in multi-organ failure. It was exclusive of separately billable procedures and treating other patients and teaching time. Please see MDM section and the rest of the note for further information on patient assessment and treatment Discharge Plan Plan Patient Disposition: Admit Acute Care w/in Hospital Prescriptions/Referrals Prescriptions/Med Rec: No Action albuterol sulfate 90 mcg/actuation HFA aerosol inhaler 2 inh INHALATION Q4H PRN (Reason: shortness of breath or wheezing) Sky Ellipta 100-62.5-25 mcg blister with device 1 inh INHALATION Q24H Patient Comments: INHALE 1 PUFF BY MOUTH ONCE DAILY azithromycin 250 mg tablet 250 mg PO QDAY 4 Days Qty: 4 0RF Rx Instructions: Take one tablet by mouth every day prednisone 10 mg tablet 20 mg PO QDAY 6 Days Qty: 12 0RF Rx Instructions: Take two tablets by mouth every day Referrals: No Primary/Family,Physician [Primary Care Provider] - In 1 week Problem List Clinical Impression: COPD (chronic obstructive pulmonary disease), Acute hypoxic respiratory failure Patient/Caregiver Discharge Instructions Print Language: Citizen Of [place] Stand Alone Forms: Alicia Award Info., Patient Portal Info Letter
[2025-04-12 10:46] LABS: INR 1.0 (0.9-1.3); Partial Thromboplastin Time 25.5 Seconds (22.0-36.0); Prothrombin Time 10.6 Seconds (9.0-12.2)
[2025-04-12] MEDS: ALBUTEROL RT 2.5 MG/0.5 ML NEBU 10 MG INH ×2 (10:49→12:55)
[2025-04-12] MEDS: IPRATROPIUM RT 0.5 MG/ 2.5 ML NEBU 1 MG INH (10:49)
[2025-04-12] MEDS: ACETAMINOPHEN 325 MG TABLET 650 MG PO (11:26)
[2025-04-12] MEDS: RINGERS LACTATED 500 ML 500 ML IV (11:27)
[2025-04-12 11:39] LABS: Alanine Aminotransferase 14 U/L (10-49); Albumin, Serum 4.5 gm/dL (3.4-4.8); Albumin/Globulin Ratio 1.7 (1.2-2.2); Alkaline Phosphatase 82 U/L (46-116); Anion Gap 8 (7-16); Aspartate Amino Transferase 18 U/L (0-34); BUN/Creatinine Ratio 26 Ratio (12-20); Bilirubin,Total 0.4 mg/dL (0.3-1.2); Blood Urea Nitrogen 23 mg/dL (9-23); Calcium 9.4 mg/dL (8.3-10.6); Calcium (Corrected) 9.4 mg/dL (8.5-10.1); Carbon Dioxide 29.3 mMol/L (20.0-31.0); Chloride 108 mMol/L (98-107); Creatinine (Component) 0.9 mg/dL (0.6-1.3); Estimated Creatinine Clearance 74.6 mL/min (>60); Globulin 2.7 gm/dL (2.3-3.5); Glucose 155 mg/dL (74-106); Osmolality,Calculated 295 (275-295); Potassium 5.0 mMol/L (3.4-5.1); Procalcitonin 0.49 ng/ml (0.0-0.49); Sodium 145 mMol/L (136-145); Total Protein 7.2 gm/dL (5.7-8.2); Troponin I 0.020 ng/mL (0.0-0.045); eGFR > 60 See Note
[2025-04-12 12:01] LABS: B-Type Natriuretic Peptide 31 pg/mL (0-100)
[2025-04-12 12:28] LABS: Collection Type, Urine Clean Catch
[2025-04-12] MEDS: AZITHROMYCIN INJ 500 MG in SODIUM CHLORIDE 0.9% 250 ML 250 ML 250 MG IV (13:05)
[2025-04-12] MEDS: RINGERS LACTATED 1000 ML 1,000 ML 999 ML IV (13:05)
[2025-04-12 13:07] LABS: Bilirubin,Urine Negative (Negative); Blood,Urine 1+ (Negative); Clarity,Urine Clear (Clear/Hazy); Color,Urine Yellow (Lt Yel-Yel); Glucose, Urine Negative (Negative); Ketones,Urine Negative (Negative); Leukocyte Esterase,Urine Negative (Negative); Nitrite,Urine Negative (Negative); PH,Urine 5.5 (5.0-7.0); Protein,Urine 1+ (Neg - Trace); RBC,Urine 5 /hpf (0-3); Specific Gravity,Urine 1.031 (1.001-1.035); Squamous Epithelial Cell,Urine 1 /hpf (0-5); Urobilinogen,Urine Negative mg/dL (0.0-1.0); WBC,Urine 1 /hpf (0-5)
[2025-04-12] MEDS: Magnesium Sulfate 2 GM Ivpb 2 GM/50 ML BAG IV (13:08)
[2025-04-12 14:03] LABS: Base Excess -2 (-3-3); HCO3 25 mEq/L (20-26); Inspired Oxygen, FIO2 30 %; O2 Saturation 72 % (91-98); PCO2 52 mmHg (32.0-48.0); pH, Arterial 7.29 (7.35-7.45)
[2025-04-12 14:10] LABS: Allen Test Performed/OK; Puncture Site Right Radial
[2025-04-12 14:12] LABS: PO2 39 mmHg (83-108)
[2025-04-12] MEDS: ALBUTEROL/IPRATROPIUM (Duoneb) RT SOL 3 ML NEBU INH ×2 (14:58→20:04)
[2025-04-12 15:14] LABS: Base Excess -2 (-3-3); HCO3 24 mEq/L (20-26); Inspired Oxygen, FIO2 30 %; O2 Saturation 100 % (91-98); PCO2 46 mmHg (32.0-48.0); PO2 164 mmHg (83-108); pH, Arterial 7.34 (7.35-7.45)
[2025-04-12 15:15] LABS: Allen Test Performed/OK; Puncture Site Right Radial
[2025-04-12] MEDS: cefTRIAXone 2 GM in SODIUM CHLORIDE 0.9% (Popper) 50 ML IV (15:36)
--- NOTE | 2025-04-12 15:36 | ESHP_ITS ---
<Statement entered by Kat Mondragon MD - 04/14/25 09:46> I discussed with and supervised the communications intern physician who took care of this patient. I personally saw and examined the patient and discussed the assessment and plan with the entire medicine team, including my attending , I agree with the assessment and plan as documented below Kat Mondragon M.D. PGY-3 Disclaimer: Despite multiple revisions, due to the dictation software being used, the document bellow may not be free of grammatical errors including phonetic/typographic errors. However, this does not deter from our commitment to providing health care in the patient's best interest in mind. 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 The patient reports a progressive increase in baseline SOB over the past few weeks, necessitating an increase in his supplemental oxygen requirement from his usual 2-3 L/min at home to constant, higher flow. Yesterday, he presented to ED for similar symptoms, was treated, and discharged feeling somewhat better. Today, his SOB acutely worsened, prompting an EMS call. Paramedics initiated 15 L/min of oxygen via non-rebreather mask to maintain saturation. He currently feels he is having a hard time catching his breath. He denies chest pain, cough, palpitations, abdominal pain, dysuria, bloody stools, recent travel, or sick contacts. He endorses a subjective fever at home (specific temperature unknown). ED course: Patient presented with vitals of blood pressure 164/105, pulse 144, respirate 26, temperature 100.8, oxygen on 15 L via OxyMask. Initial ABG showed pH of 7.29, pCO2 52, pO2 39, bicarb of 25 which improved to pH 7.34, PCO2 of 46, PaO2 of 164 on BiPaP FiO2 30. Notable labs include WBC 17.9, hemoglobin 13.8, sodium 145, potassium 5, creatinine 0.9, troponin negative, LFTs within normal limit, procalcitonin 0.49, BNP 31. PHx: as stated above Allergies: NKDA Meds: see med list FHx: noncontributory SoHx: Patient quit smoking earlier this year, 45-year years of smoking half a pack a day, no alcohol and no drug use Patient admitted for acute on chronic hypoxic hypercapnic respiratory failure and community-acquired pneumonia. Review of Systems Review of Systems Narrative Review of Systems: All systems reviewed negative unless stated otherwise above. Exam Vital Signs Temp Pulse Resp BP Pulse Ox O2 Del Method O2 Flow Rate 99.5 F 114 H 34 H 123/73 100 Nasal Cannula 3 04/12/25 12:44 04/12/25 14:58 04/12/25 14:58 04/12/25 12:44 04/12/25 14:58 04/12/25 12:44 04/12/25 12:56 FiO2 30 04/12/25 14:58 Narrative Exam General: A/O x3, in severe distress, very short of breath, tripod position, pursed lip breathing. Not able to complete sentences. Eyes: PERRLA, EOMI. Anicteric. Ears: No ear pain, no ear discharge, hearing grossly intact. Nose: No nasal discharge. Mouth/Throat: Moist mucous membranes, no redness, no lesions. Neck: Neck supple, non-tender, no cervical lymphadenopathy. Lungs: Very increased work of breathing. Accessory muscle use. No crackles or adventitious sounds. Cardio: Normal S1/S2, regular rhythm, no murmurs, no JVD Abdomen: Soft, no distention, no tenderness to palpation, no guarding or rebound. Extremities: Symmetrical, no significant deformities, no peripheral edema. Skin: No rashes, no lesions, warm to touch. Neuro: No focal neurologic deficits. Moving all 4 limbs. Psych: Cooperative, no flight of ideas Results: Labs 04/13/25 04:32 04/13/25 04:32 Labs: Short CBC 04/12/25 Range/Units 10:09 WBC 17.9 H (3.8-10.6) Thou/mm3 Hgb 13.8 (13.5-16.0) g/dL Hct 42.6 (41.0-53.0) % Plt Count 266 D (140-440) Thou/mm3 BMP 04/12/25 10:09 Sodium 145 Potassium 5.0 D Chloride 108 H Carbon Dioxide 29.3 BUN 23 Creatinine 0.9 Glucose 155 H Calcium 9.4 Cardiac Enzymes 04/12/25 Range/Units 10:09 Troponin I 0.020 (0.0-0.045) ng/mL Liver Function 04/12/25 Range/Units 10:09 Total Bilirubin 0.4 D (0.3-1.2) mg/dL AST 18 (0-34) U/L ALT 14 (10-49) U/L Alkaline Phosphatase 82 (46-116) U/L Albumin 4.5 (3.4-4.8) gm/dL Urine 04/12/25 Range/Units 12:16 Urine Color Yellow (Lt Yel-Yel) Urine Clarity Clear (Clear/Hazy) Urine pH 5.5 (5.0-7.0) Ur Specific [place] 1.031 (1.001-1.035) Urine Protein 1+ A (Neg - Trace) Urine Glucose (UA) Negative (Negative) ABG Interpretation ABG results: 04/12/25 04/12/25 13:59 15:06 ABG pH 7.29 L 7.34 L ABG pCO2 52 H 46 ABG pO2 39 L* 164 H D ABG HCO3 25 24 ABG O2 Saturation 72 L 100 H ABG Base Excess -2 -2 Quality Measures Quality Measures none Advance care planning discussed with:: patient Medications Home Medications and Allergies Home Medications ?Medication ?Instructions ?Recorded ?Confirmed ?Type albuterol sulfate 90 mcg/actuation 2 inh inhalation Q4 H PRN shortness 08/12/24 04/12/25 History aerosol inhaler of breath or wheezing fluticasone fur. 100 mcg-umeclid 1 inh inhalation Q24H 08/12/24 04/12/25 History 62.5 mcg-vilant 25 mcg inhalat.powder (Trelegy Ellipta) nicotine 14 mg/24 hr daily 21 mg topical DAILY smoking 04/12/25 04/12/25 History transdermal patch cessation Allergies Allergy/AdvReac Type Severity Reaction Status Date / Time No Known Allergies Allergy Verified 01/26/25 10:58 Visit Medications Acetaminophen (Acetaminophen 325 Mg Tablet) 650 mg PO Q6H PRN PRN Reason: PAIN OR FEVER > 101 Stop: 05/12/25 14:39 Albuterol/Ipratropium (Albuterol/Ipratropium (Duoneb) Rt Marlen 3 Ml Nebu) 3 ml INH Q4HR RUY Stop: 05/12/25 14:44 Last Admin: 04/12/25 14:58 Dose: 3 ml Enoxaparin Sodium (Enoxaparin Sod Inj 40 Mg/0.4 Ml Syringe) 40 mg SC QDAY RUY Stop: 04/27/25 08:59 Azithromycin 500 mg/ Sodium (Chloride) 250 mls @ 250 mls/hr IV QDAY RUY Stop: 04/19/25 12:44 Ceftriaxone Sodium 2 gm/ (Sodium Chloride) 50 mls @ 100 mls/hr IV QDAY RUY Stop: 04/19/25 14:14 Methylprednisolone Sodium Succinate (Methylprednisolone Sod Succ 40 Mg/Ml Vial) 40 mg IV BID RUY Stop: 05/12/25 14:59 Ondansetron HCl (Ondansetron Inj 2 Mg/Ml Inj 2 Ml) 4 mg IVP Q6H PRN; Protocol PRN Reason: NAUSEA OR VOMITING Stop: 05/12/25 14:18 Sennosides (Senna Tablet) 1 tab PO QDAY PRN; Protocol PRN Reason: constipation Stop: 05/12/25 14:18 Sodium Chloride (Sodium Chloride Rt [place] 0.9% 3 Ml Nebu) 3 ml INH PRN PRN PRN Reason: SOLN Stop: 05/12/25 10:17 Discontinued Medications Acetaminophen (Acetaminophen 325 Mg Tablet) 650 mg PO X1 ONE Stop: 04/12/25 11:23 Last Admin: 04/12/25 11:26 Dose: 650 mg Albuterol (Albuterol Rt 2.5 Mg/0.5 Ml Nebu) 10 mg INH X1 ONE Stop: 04/12/25 10:19 Last Admin: 04/12/25 10:49 Dose: 10 mg Albuterol (Albuterol Rt 2.5 Mg/0.5 Ml Nebu) 10 mg INH X1 ONE Stop: 04/12/25 12:40 Last Admin: 04/12/25 12:55 Dose: 10 mg Ceftriaxone Sodium/Dextrose (Rocephin/D5w 1gm Iv Premix) 1 gm in 50 mls @ 100 mls/hr IV STAT STA Stop: 04/12/25 10:47 Last Infusion: 04/12/25 10:59 Dose: Infused Lactated Ringer's (Lactated Ringers) 500 mls @ 500 mls/hr IV .Q1H ONE Stop: 04/12/25 12:21 Last Infusion: 04/12/25 12:27 Dose: Infused Magnesium Sulfate (Magnesium Sulfate Ivpb) 2 gm in 50 mls @ 25 mls/hr IV X1 ONE Stop: 04/12/25 14:39 Last Admin: 04/12/25 13:08 Dose: 25 mls/hr Lactated Ringer's (Lactated Ringers) 1,000 mls @ 999 mls/hr IV .Q1H1M ONE Stop: 04/12/25 13:40 Last Infusion: 04/12/25 14:06 Dose: Infused Azithromycin 500 mg/ Sodium (Chloride) 250 mls @ 250 mls/hr IV X1 ONE Stop: 04/12/25 13:59 Last Infusion: 04/12/25 14:05 Dose: Infused Ipratropium [place] (Ipratropium Rt 0.5 Mg/ 2.5 Ml Nebu) 1 mg INH X1 ONE Stop: 04/12/25 10:19 Last Admin: 04/12/25 10:49 Dose: 1 mg Methylprednisolone Sodium Succinate (Methylprednisolone Sod Succ 62.5 Mg/Ml 2ml Vial) 125 mg IVP X1 ONE Stop: 04/12/25 10:19 Last Admin: 04/12/25 10:29 Dose: 125 mg Assessment & Plan Plan 74-year-old male with a history of 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 Patient admitted on 04/12 for acute on chronic respiratory failure. #Acute on chronic hypoxic hypercapnic respiratory failure 2/2 #COPD exacerbation #SIRS criteria 4/4 with no confirmed source On initial presentation patient's respiratory rate was in the 40s and was placed on oxygen but was still very tachypneic Patient's respiration improved when transitioned to BiPAP Initial ABG showed pH of 7.29, pCO2 52, pO2 39, bicarb of 25 which improved to pH 7.34, PCO2 of 46, PaO2 of 164 on BiPaP FiO2 30. Chest x-ray did not reveal any pneumonia WBC elevated 17.9, ProCal 0.49 Trop 0.02 BNP 31 UA clear T 100.8 LA 1.9 Plan - Cont'd BiPaP, wean as appropriate - Azithromycin 500mg IV day (04/12 - - Ceftriaxone 2g IV day (04/12 - - Methypred 40mg BID #Hx of Lung Ca, mets to spine Managed outpatient - No active intervention inpatient Health Maintenance: Diet: NPO GI prophylaxis: none DVT prophylaxis: Lovenox Antibiotics: Azithromycin and Ceftriaxone CODE STATUS: FULL Disposition: MedTele Case discussed with my attending Dr. Chandra, and senior resident, Dr.Martirosyan Baron Dowell MD PGY-1 Attending Provider Attestation/Addendum I attest that I was physically present for the evaluation, physical examination, lab and imaging review of the patient with the residents. I discussed the case with the residents and agree with the findings and plans of care as documented above. After examination of the patient and review of the clinical data I feel that this patient needs admission to the hospital for further treatment/evaluation. Puja Ruiz MD
[2025-04-12 15:40] LABS: Respiratory Syncytial Virus Ag Negative (Negative)
[2025-04-12 15:41] LABS: Influenza A Ag Negative; Influenza B Ag Negative
[2025-04-12] MEDS: NICOTINE PATCH 14 MG/24 HR PATCH.TD24 TOP (22:22)
[2025-04-13] VITALS (19 sets, daily range): BP systolic 103–123; BP diastolic 63–82; PULSE 71–789; RESP 12–34; TEMP 36.2–37; O2SAT 94–99; BMI 20.9
[2025-04-13] MEDS: ALBUTEROL/IPRATROPIUM (Duoneb) RT SOL 3 ML NEBU INH ×7 (00:01→23:13)
[2025-04-13 06:05] LABS: Basophils # (Auto) 0.0 Thou/mm3 (0.0-0.2); Basophils % (Auto) 0 % (0-2.5); Eosinophils # (Auto) 0.0 Thou/mm3 (0.0-0.5); Eosinophils % (Auto) 0 % (0-10); Hematocrit 36.4 % (41.0-53.0); Hemoglobin 11.8 g/dL (13.5-16.0); Immature Granulocytes Auto 0.03 Thou/mm3 (0.00-0.00); Lymphocytes # (Auto) 0.8 Thou/mm3 (1.0-4.8); Lymphocytes % (Auto) 9 % (10-50); Mean Corpuscular HGB Conc 32.4 g/dl (31.0-37.0); Mean Corpuscular Hemoglobin 32.7 pg (25.0-35.0); Mean Corpuscular Volume 101 fL (80-100); Monocytes # (Auto) 0.6 Thou/mm3 (0.0-0.8); Monocytes % (Auto) 7 % (0-12); Neutrophils # (Auto) 7.4 Thou/mm3 (1.8-7.7); Neutrophils % (Auto) 84 % (37-80); Nucleated Red Blood Cell # 0.00 Thou/mm3 (0.00-0.00); Nucleated Red Blood Cell % 0 /100 WBC (0); Platelet Count 186 Thou/mm3 (140-440); RDW Standard Deviation 49.1 fL (35.1-43.9); Red Blood Count 3.61 Miln/mm3 (4.50-5.90); White Blood Count 8.8 Thou/mm3 (3.8-10.6)
[2025-04-13 06:34] LABS: Alanine Aminotransferase 14 U/L (10-49); Anion Gap 7 (7-16); Aspartate Amino Transferase 19 U/L (0-34); BUN/Creatinine Ratio 23 Ratio (12-20); Bilirubin,Total 0.3 mg/dL (0.3-1.2); Blood Urea Nitrogen 16 mg/dL (9-23); Calcium 9.2 mg/dL (8.3-10.6); Carbon Dioxide 30.7 mMol/L (20.0-31.0); Cardiac Risk Estimate 2.4 RATIO (4.0-6.7); Chloride 106 mMol/L (98-107); Cholesterol 120 mg/dL (132-200); Creatinine (Component) 0.7 mg/dL (0.6-1.3); Estimated Creatinine Clearance 93.1 mL/min (>60); Glucose 127 mg/dL (74-106); HDL Cholesterol 51 mg/dL (40-60); LDL Cholesterol,Calculated 55 mg/dL (0-130); Magnesium 2.4 mg/dL (1.6-2.6); Osmolality,Calculated 290 (275-295); Phosphorous 3.2 mg/dL (2.4-5.1); Potassium 4.4 mMol/L (3.4-5.1); Sodium 144 mMol/L (136-145); Total Protein 6.1 gm/dL (5.7-8.2); Triglycerides 70 mg/dL (30-150); eGFR > 60 See Note
[2025-04-13 06:36] LABS: Calcium (Corrected) 9.3 mg/dL (8.5-10.1)
[2025-04-13 06:43] LABS: Albumin, Serum 3.8 gm/dL (3.4-4.8); Albumin/Globulin Ratio 1.7 (1.2-2.2); Alkaline Phosphatase 64 U/L (46-116); Globulin 2.3 gm/dL (2.3-3.5)
[2025-04-13] MEDS: cefTRIAXone 2 GM in SODIUM CHLORIDE 0.9% (Popper) 50 ML IV (08:15)
[2025-04-13] MEDS: AZITHROMYCIN INJ 500 MG in SODIUM CHLORIDE 0.9% 250 ML 250 ML 250 MG IV (08:16)
[2025-04-13] MEDS: ENOXAPARIN SOD INJ 40 MG/0.4 ML SYRINGE SC (08:16)
--- NOTE | 2025-04-13 09:16 | PC.SS ---
Follow up note: Cultures pending. On IV antibiotic.
--- NOTE | 2025-04-13 11:52 | ESPR_ITS ---
Documentation for date of: 04/13/25 Subjective Subjective Interval history: Patient seen at bedside. No acute overnight events. Patient has been weaned off of BiPAP and is now on 2 L O2 nasal cannula. No longer short of breath, able to complete sentences. Mentions that would like some mucolytic's to help the phlegm come out and would like to work with chest physiotherapy. No complaints of chest pain, abdominal pain, nausea, vomiting. Patient is also asking for food. Exam Vital Signs Temp Pulse Resp BP Pulse Ox O2 Del Method O2 Flow Rate 98.2 F 78 16 106/65 96 Nasal Cannula 1 04/13/25 08:44 04/13/25 10:32 04/13/25 10:32 04/13/25 08:44 04/13/25 10:32 04/13/25 08:44 04/13/25 10:32 FiO2 30 04/13/25 07:00 Narrative Exam General: A/O x3, no acute distress, conversing well, on 2 L of oxygen Eyes: PERRLA, EOMI. Anicteric. Ears: No ear pain, no ear discharge, hearing grossly intact. Nose: No nasal discharge. Mouth/Throat: Moist mucous membranes, no redness, no lesions. Neck: Neck supple, non-tender, no cervical lymphadenopathy. Lungs: Clear bilaterally. No accessory muscle use. No crackles or adventitious sounds. Cardio: Normal S1/S2, regular rhythm, no murmurs, no JVD Abdomen: Soft, no distention, no tenderness to palpation, no guarding or rebound. Extremities: Symmetrical, no significant deformities, no peripheral edema. Skin: No rashes, no lesions, warm to touch. Neuro: No focal neurologic deficits. Moving all 4 limbs. Psych: Cooperative, no flight of ideas. Objective Labs 04/13/25 04:32 04/13/25 04:32 Labs: Laboratory Results - last 24 hr 04/12/25 04/12/25 04/12/25 10:09 12:16 13:59 WBC RBC Hgb Hct MCV MCH MCHC RDW Std Deviation Plt Count Neut % (Auto) Lymph % (Auto) Sharp % (Auto) Eos % (Auto) Baso % (Auto) Neut # (Auto) Lymph # (Auto) Sharp # (Auto) Eos # (Auto) Baso # (Auto) Immature Gran # (Auto) Absolute Nucleated RBC Immature Gran % Nucleated RBC % Puncture Site Right Radial ABG pH 7.29 L ABG pCO2 52 H ABG pO2 39 L* ABG HCO3 25 ABG O2 Saturation 72 L ABG Base Excess -2 FiO2 30 Sodium Potassium Chloride Carbon Dioxide Anion Gap BUN Creatinine Estim Creat Clear Calc eGFR BUN/Creatinine Ratio Glucose Calculated Osmolality Calcium Corrected Calcium Phosphorus Magnesium Total Bilirubin AST ALT Alkaline Phosphatase B-Natriuretic Peptide 31 Total Protein Albumin Globulin Albumin/Globulin Ratio Triglycerides Cholesterol LDL Cholesterol, Calc HDL Cholesterol Cholesterol/HDL Ratio Ur Collection Type Clean Catch Urine Color Yellow Urine Clarity Clear Urine pH 5.5 Ur Specific [place] 1.031 Urine Protein 1+ A Urine Glucose (UA) Negative Urine Ketones Negative Urine Blood 1+ A Urine Nitrite Negative Urine Bilirubin Negative Urine Urobilinogen (Auto) Negative Ur Leukocyte Esterase Negative Urine RBC 5 H Urine WBC 1 Ur Squamous Epith Cells 1 Urine Bacteria None Influenza A (Rapid) Influenza B (Rapid) RSV Rapid 04/12/25 04/12/25 04/13/25 15:06 15:07 04:32 WBC 8.8 D RBC 3.61 L Hgb 11.8 L D Hct 36.4 L MCV 101 H MCH 32.7 MCHC 32.4 RDW Std Deviation 49.1 H Plt Count 186 D Neut % (Auto) 84 H Lymph % (Auto) 9 L Sharp % (Auto) 7 Eos % (Auto) 0 Baso % (Auto) 0 Neut # (Auto) 7.4 Lymph # (Auto) 0.8 L Sharp # (Auto) 0.6 Eos # (Auto) 0.0 Baso # (Auto) 0.0 Immature Gran # (Auto) 0.03 H Absolute Nucleated RBC 0.00 Immature Gran % 0 Nucleated RBC % 0 Puncture Site Right Radial ABG pH 7.34 L ABG pCO2 46 ABG pO2 164 H D ABG HCO3 24 ABG O2 Saturation 100 H ABG Base Excess -2 FiO2 30 Sodium 144 Potassium 4.4 D Chloride 106 Carbon Dioxide 30.7 Anion Gap 7 BUN 16 Creatinine 0.7 Estim Creat Clear Calc 93.1 eGFR > 60 BUN/Creatinine Ratio 23 H Glucose 127 H Calculated Osmolality 290 Calcium 9.2 Corrected Calcium 9.3 Phosphorus 3.2 Magnesium 2.4 Total Bilirubin 0.3 AST 19 ALT 14 Alkaline Phosphatase 64 D B-Natriuretic Peptide Total Protein 6.1 Albumin 3.8 D Globulin 2.3 Albumin/Globulin Ratio 1.7 Triglycerides 70 Cholesterol 120 L LDL Cholesterol, Calc 55 HDL Cholesterol 51 Cholesterol/HDL Ratio 2.4 L Ur Collection Type Urine Color Urine Clarity Urine pH Ur Specific [place] Urine Protein Urine Glucose (UA) Urine Ketones Urine Blood Urine Nitrite Urine Bilirubin Urine Urobilinogen (Auto) Ur Leukocyte Esterase Urine RBC Urine WBC Ur Squamous Epith Cells Urine Bacteria Influenza A (Rapid) Negative Influenza B (Rapid) Negative RSV Rapid Negative ABG Interpretation ABG results: 04/12/25 04/12/25 13:59 15:06 ABG pH 7.29 L 7.34 L ABG pCO2 52 H 46 ABG pO2 39 L* 164 H D ABG HCO3 25 24 ABG O2 Saturation 72 L 100 H ABG Base Excess -2 -2 Quality Measures Quality Measures none Advance care planning discussed with:: patient Assessment & Plan Assessment Current Active Medications: Generic Name Dose Route Start Last Admin Trade Name Freq PRN Reason Stop Dose Admin Acetaminophen 650 mg 04/12/25 14:40 Acetaminophen 325 Mg Tablet PO 05/12/25 14:39 Q6H PRN PAIN OR FEVER > 101 Acetylcysteine 3 ml 04/13/25 15:00 Acetylcysteine Rt Marlen 10% 4 Ml Nebu INH 05/13/25 14:59 Q4HRRT RUY Albuterol/Ipratropium 3 ml 04/12/25 19:00 04/13/25 10:32 Albuterol/Ipratropium (Duoneb) Rt Marlen 3 Ml Nebu INH 05/12/25 18:59 3 ml Q4HRRT RUY Administration Enoxaparin Sodium 40 mg 04/13/25 09:00 04/13/25 08:16 Enoxaparin Sod Inj 40 Mg/0.4 Ml Syringe SC 04/27/25 08:59 40 mg QDAY RUY Administration Fluticasone/Umeclidinium/Vilanterol 1 puff 04/13/25 10:15 Fluticasone/Umeclidin/Vilanterol 100-62.5-25 Mcg Inhaler INH 05/13/25 10:14 QDAY RUY Azithromycin 500 mg/ Sodium 250 mls @ 250 mls/hr 04/13/25 09:00 04/13/25 08:16 Chloride IV 04/20/25 08:59 250 mls/hr QDAY RUY Administration Ceftriaxone Sodium 2 gm/ 50 mls @ 100 mls/hr 04/12/25 14:15 04/13/25 08:15 Sodium Chloride IV 04/19/25 14:14 100 mls/hr QDAY RUY Administration Methylprednisolone Sodium Succinate 40 mg 04/12/25 15:00 04/13/25 08:15 Methylprednisolone Sod Succ 40 Mg/Ml Vial IV 05/12/25 14:59 40 mg BID RUY Administration Ondansetron HCl 4 mg 04/12/25 14:19 Ondansetron Inj 2 Mg/Ml Inj 2 Ml IVP 05/12/25 14:18 Q6H PRN NAUSEA OR VOMITING Protocol Sennosides 1 tab 04/12/25 14:19 Senna Tablet PO 05/12/25 14:18 QDAY PRN constipation Protocol Sodium Chloride 3 ml 04/12/25 10:18 Sodium Chloride Rt Marlen 0.9% 3 Ml Nebu INH 05/12/25 10:17 PRN PRN SOLN Plan 74-year-old male with a history of 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 Patient admitted on 04/12 for acute on chronic respiratory failure. #Acute on chronic hypoxic hypercapnic respiratory failure 08/10 #COPD exacerbation #Possible pneumonia On initial presentation patient's respiratory rate was in the 40s and was placed on oxygen but was still very tachypneic Patient's respiration improved when transitioned to BiPAP Initial ABG showed pH of 7.29, pCO2 52, pO2 39, bicarb of 25 which improved to pH 7.34, PCO2 of 46, PaO2 of 164 on BiPaP FiO2 30. Chest x-ray unconvincing for pneumonia RSV 04/12 neg WBC 17.9 --> 8.8 UA clear T 100.8 -> 97.5 LA 1.9 Plan - Weaned off of BiPAP today and is on nasal cannula 2 L - Azithromycin 500mg IV day (04/12 - - Ceftriaxone 2g IV day (04/12 - - Methypred 40mg BID ?Chest physiotherapy ?Acetylcysteine inh every 4 hours #Hx of Lung Ca, mets to spine Managed outpatient - No active intervention inpatient Health Maintenance: Diet: NPO GI prophylaxis: none DVT prophylaxis: Lovenox Antibiotics: Azithromycin and Ceftriaxone CODE STATUS: FULL Disposition: MedTele Case discussed with my attending Dr. Sara Dowell MD PGY-1 Attending Provider Attestation/Addendum I attest that I was physically present for the evaluation, physical examination, lab and imaging review of the patient with the residents. I discussed the case with the residents and agree with the findings and plans of care as documented above. Patient seen and examined at bedside this morning. Appears much comfortable compared to yesterday. Vital signs are stable, has been switched to nasal cannula, saturating well on 3 L/min of supplemental oxygen. WBC count has improved to 8.8 from 17.9 yesterday.Chemistry panel continues to be on IV antibiotics along with IV steroid for COPD exacerbation. We will continue to monitor closely and continue to wean down supplemental oxygen. Culture results are pending. Puja Ruiz MD
[2025-04-13] MEDS: FLUTICASONE/UMECLIDIN/VILANTEROL 100-62.5-25 MCG INHALER 1 PUFF INH (12:12)
--- NOTE | 2025-04-13 12:48 | PC.SS ---
SS met with patient and regarding his d/c plan. Pt is alert/oriented. Pt was admitted for COPD Exacerbation. Pt confirmed demographic and contact information is correct on his facesheet. Pt resides with . Pt ambulates independently without assistance or DME. Pt is ok with all ADLs. Pt is currently on 2 liters of O2. Pt utlizes O2 at home from [employer] and has portable O2. Patient?s pharmacy of choice is [facility]. Pt named his , Flory medical decision maker if he is unable. SS provided verbal choices for d/c to home or SNF. Patient?s choice is to return home upon d/c. Pt does not have an advance directive, SS offered, and pt was receptive. Pt states he is not diabetic and is not on dialysis. will provide transportation home and is aware to bring portable O2. Pt follows up with PCP every Sunday and next appointment is Apr 20, 2025. D/C plan: Return home Next of Kin: Flory Vazquez, , phone# [phone] PCP: Dr. Leung from [facility] in [place] Address: Correct on facesheet
[2025-04-13] MEDS: ACETYLCYSTEINE RT SOL 10% 4 ML NEBU 3 ML INH ×3 (14:17→23:12)
[2025-04-14] VITALS (14 sets, daily range): BP systolic 99–123; BP diastolic 66–82; PULSE 57–98; RESP 12–33; TEMP 36.4–37.2; O2SAT 96–99; BMI 20.2
[2025-04-14] MEDS: ALBUTEROL/IPRATROPIUM (Duoneb) RT SOL 3 ML NEBU INH ×3 (02:07→14:58)
[2025-04-14] MEDS: ACETYLCYSTEINE RT SOL 10% 4 ML NEBU 3 ML INH ×2 (02:07→06:09)
[2025-04-14 05:27] LABS: Basophils # (Auto) 0.0 Thou/mm3 (0.0-0.2); Basophils % (Auto) 0 % (0-2.5); Eosinophils # (Auto) 0.0 Thou/mm3 (0.0-0.5); Eosinophils % (Auto) 0 % (0-10); Hematocrit 35.1 % (41.0-53.0); Hemoglobin 11.5 g/dL (13.5-16.0); Immature Granulocytes Auto 0.03 Thou/mm3 (0.00-0.00); Lymphocytes # (Auto) 1.0 Thou/mm3 (1.0-4.8); Lymphocytes % (Auto) 12 % (10-50); Mean Corpuscular HGB Conc 32.8 g/dl (31.0-37.0); Mean Corpuscular Hemoglobin 32.3 pg (25.0-35.0); Mean Corpuscular Volume 99 fL (80-100); Monocytes # (Auto) 0.4 Thou/mm3 (0.0-0.8); Monocytes % (Auto) 5 % (0-12); Neutrophils # (Auto) 7.2 Thou/mm3 (1.8-7.7); Neutrophils % (Auto) 83 % (37-80); Nucleated Red Blood Cell # 0.00 Thou/mm3 (0.00-0.00); Nucleated Red Blood Cell % 0 /100 WBC (0); Platelet Count 220 Thou/mm3 (140-440); RDW Standard Deviation 46.6 fL (35.1-43.9); Red Blood Count 3.56 Miln/mm3 (4.50-5.90); White Blood Count 8.7 Thou/mm3 (3.8-10.6)
[2025-04-14 05:52] LABS: Anion Gap 5 (7-16); BUN/Creatinine Ratio 25 Ratio (12-20); Blood Urea Nitrogen 20 mg/dL (9-23); Calcium 9.1 mg/dL (8.3-10.6); Carbon Dioxide 29.6 mMol/L (20.0-31.0); Chloride 108 mMol/L (98-107); Creatinine (Component) 0.8 mg/dL (0.6-1.3); Estimated Creatinine Clearance 81.5 mL/min (>60); Glucose 138 mg/dL (74-106); Osmolality,Calculated 289 (275-295); Potassium 4.9 mMol/L (3.4-5.1); Sodium 143 mMol/L (136-145); eGFR > 60 See Note
[2025-04-14] MEDS: FLUTICASONE/UMECLIDIN/VILANTEROL 100-62.5-25 MCG INHALER 1 PUFF INH (06:09)
[2025-04-14] MEDS: cefTRIAXone 2 GM in SODIUM CHLORIDE 0.9% (Popper) 50 ML IV (08:37)
[2025-04-14] MEDS: ENOXAPARIN SOD INJ 40 MG/0.4 ML SYRINGE SC (08:37)
[2025-04-14] MEDS: AZITHROMYCIN INJ 500 MG in SODIUM CHLORIDE 0.9% 250 ML 250 ML 250 MG IV (09:37)
--- NOTE | 2025-04-14 12:17 | ESPR_ITS ---
Documentation for date of: 04/14/25 Subjective Subjective Interval history: Patient seen and assessed in hospital bed denies having any concerning symptoms at this time. Patient's blood cultures are growing GPC, staph appearing from both sets of blood cultures. Repeat blood cultures sent out but at this time there is some possibility of contamination as from 1 set only 1 bottle is positive. Patient otherwise denies having any concerning symptoms. Contacted, and consulted Dr. Wells (radiology oncologist) as the patient had a appointment tomorrow to begin planning for radiation of his metastatic cancer. At this time, patient will remain in the hospital and will follow-up next week with Dr. Wells. Exam Vital Signs Temp Pulse Resp BP Pulse Ox O2 Del Method O2 Flow Rate 97.5 F 90 18 105/82 97 Nasal Cannula 3 04/14/25 11:23 04/14/25 11:23 04/14/25 11:23 04/14/25 11:23 04/14/25 11:23 04/14/25 11:23 04/14/25 11:23 FiO2 30 04/14/25 06:09 Narrative Exam General:conversing well, on 2 L of oxygen Eyes: PERRLA, EOMI. Anicteric. Ears: No ear pain, no ear discharge, hearing grossly intact. Nose: No nasal discharge. Mouth/Throat: Moist mucous membranes, no redness, no lesions. Neck: Neck supple, non-tender, no cervical lymphadenopathy. Lungs: Clear bilaterally. No accessory muscle use. No crackles or adventitious sounds. Cardio: Normal S1/S2, regular rhythm, no murmurs, no JVD Abdomen: Soft, no distention, no tenderness to palpation, no guarding or rebound. Extremities: Symmetrical, no significant deformities, no peripheral edema. Skin: No rashes, no lesions, warm to touch. Neuro: A/O x3, No focal neurologic deficits. Moving all 4 limbs. Objective Labs 04/14/25 05:00 04/14/25 05:00 Labs: Laboratory Results - last 24 hr 04/14/25 05:00 WBC 8.7 RBC 3.56 L Hgb 11.5 L Hct 35.1 L MCV 99 MCH 32.3 MCHC 32.8 RDW Std Deviation 46.6 H Plt Count 220 D Neut % (Auto) 83 H Lymph % (Auto) 12 [place] % (Auto) 5 Eos % (Auto) 0 Baso % (Auto) 0 Neut # (Auto) 7.2 Lymph # (Auto) 1.0 [place] # (Auto) 0.4 Eos # (Auto) 0.0 Baso # (Auto) 0.0 Immature Gran # (Auto) 0.03 H Absolute Nucleated RBC 0.00 Immature Gran % 0 Nucleated RBC % 0 Sodium 143 Potassium 4.9 D Chloride 108 H Carbon Dioxide 29.6 Anion Gap 5 L BUN 20 Creatinine 0.8 Estim Creat Clear Calc 81.5 eGFR > 60 BUN/Creatinine Ratio 25 H Glucose 138 H Calculated Osmolality 289 Calcium 9.1 ABG Interpretation ABG results: 04/12/25 04/12/25 13:59 15:06 ABG pH 7.29 L 7.34 L ABG pCO2 52 H 46 ABG pO2 39 L* 164 H D ABG HCO3 25 24 ABG O2 Saturation 72 L 100 H ABG Base Excess -2 -2 Quality Measures Quality Measures none Advance care planning discussed with:: patient Assessment & Plan Assessment Current Active Medications: Generic Name Dose Route Start Last Admin Trade Name Freq PRN Reason Stop Dose Admin Acetaminophen 650 mg 04/12/25 14:40 Acetaminophen 325 Mg Tablet PO 05/12/25 14:39 Q6H PRN PAIN OR FEVER > 101 Albuterol/Ipratropium 3 ml 04/12/25 19:00 04/14/25 06:09 Albuterol/Ipratropium (Duoneb) Rt Marlen 3 Ml Nebu INH 05/12/25 18:59 3 ml Q4HRRT RUY Administration Enoxaparin Sodium 40 mg 04/13/25 09:00 04/14/25 08:37 Enoxaparin Sod Inj 40 Mg/0.4 Ml Syringe SC 04/27/25 08:59 40 mg QDAY RUY Administration Fluticasone/Umeclidinium/Vilanterol 1 puff 04/13/25 12:07 04/14/25 06:09 Fluticasone/Umeclidin/Vilanterol 100-62.5-25 Mcg Inhaler INH 05/13/25 10:14 1 puff QDAY RUY Administration Azithromycin 500 mg/ Sodium 250 mls @ 250 mls/hr 04/13/25 09:00 04/14/25 09:37 Chloride IV 04/20/25 08:59 250 mls/hr QDAY RUY Administration Doxycycline Hyclate 100 mg/ 100 mls @ 100 mls/hr 04/14/25 21:00 Sodium Chloride IV 04/21/25 20:59 BID RUY Methylprednisolone Sodium Succinate 40 mg 04/15/25 09:00 Methylprednisolone Sod Succ 40 Mg/Ml Vial IV 04/22/25 08:59 QDAY RUY Ondansetron HCl 4 mg 04/12/25 14:19 Ondansetron Inj 2 Mg/Ml Inj 2 Ml IVP 05/12/25 14:18 Q6H PRN NAUSEA OR VOMITING Protocol Sennosides 1 tab 04/12/25 14:19 Senna Tablet PO 05/12/25 14:18 QDAY PRN constipation Protocol Sodium Chloride 3 ml 04/12/25 10:18 Sodium Chloride Rt Marlen 0.9% 3 Ml Nebu INH 05/12/25 10:17 PRN PRN SOLN Plan 74-year-old male with a history of 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 Patient admitted on 04/12 for acute on chronic respiratory failure. #Acute on chronic hypoxic hypercapnic respiratory failure 08/10 #COPD exacerbation #Possible pneumonia On initial presentation patient's respiratory rate was in the 40s and was placed on oxygen but was still very tachypneic Patient's respiration improved when transitioned to BiPAP Initial ABG showed pH of 7.29, pCO2 52, pO2 39, bicarb of 25 which improved to pH 7.34, PCO2 of 46, PaO2 of 164 on BiPaP FiO2 30. Chest x-ray unconvincing for pneumonia RSV 04/12 neg WBC 17.9 --> 8.8 UA clear T 100.8 -> 97.5 LA 1.9 Plan - Weaned off of BiPAP today and is on nasal cannula 2 L - Azithromycin 500mg IV day (04/12 - - Discontinued ceftriaxone - Methypred 40mg changed to daily ?Chest physiotherapy #GPC bacteremia Patient's blood cultures growing GPC bacteremia, appears similar to staph Likely contaminant versus seeding from COPD exacerbation/possible pneumonia Plan: Repeat blood cultures ordered #Macrocytic anemia Patient has hemoglobin 11.5 with an MCV of 99 Differentials include: Vitamin B12, folate deficiency, anemia of chronic disease less likely to be iron deficiency anemia as iron panel is unremarkable, less likely to be hemolytic anemia or bone marrow suppression at this time Plan: Follow-up on morning B12 and folate levels, replete as necessary #Hx of Lung Ca, mets to spine Managed outpatient 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 Wells (radiology oncologist) who agreed that the patient can follow- up next week to proceed with planning of radiation of his metastatic lung cancer - No active intervention inpatient #Nicotine dependence Patient is requesting nicotine patch Plan: Continue nicotine 7 mg topical patch Health Maintenance: Diet: NPO GI prophylaxis: none DVT prophylaxis: Lovenox Antibiotics: Azithromycin and Ceftriaxone CODE STATUS: FULL Disposition: MedTele Patient seen and assessed with attending Dr. Sara Henning, PGY-2 Internal Medicine - GME Attending Provider Attestation/Addendum I attest that I was physically present for the evaluation, physical examination, lab and imaging review of the patient with the residents. I discussed the case with the residents and agree with the findings and plans of care as documented above. Patient seen and examined at bedside this morning. Appears comfortable and states he has been feeling better. Saturating well on 2 to 3 L nasal cannula. Rest of the vitals are within normal limits. Decreased Solu-Medrol dosing to daily. WBC count has been stable. Rest of the lab results are also stable. Patient grew Klebsiella pneumonia and sputum culture, sensitive to most of the antibiotics. Grew GPC on one of the bottles resembling staph, we will switch his antibiotic to IV doxycycline and wait for final culture results. Oncology consulted, recommended outpatient follow-up for his spine radiation and systemic therapy, appreciate recommendations. Puja Ruiz MD
--- NOTE | 2025-04-14 12:17 | PD.ONCCONS ---
HPI Data of Consult Consult date: 04/14/25 Requesting Physician: Puja Ruiz MD Primary Care Provider: Physician No Primary/Family Consult Narrative Reason for consult: Stage IV lung CA patient with mets admitted with COPD History of present illness: Patient with long history of COPD was recently surgerized T4-T6 metastatic spinal extension performed at [facility] 02/27/2025. Biopsy revealed metastatic adenocarcinoma. PD-L1 and foundation 1 pending. Imaging studies including CT scan and PET scan showed widespread lung and bone involvement. Patient had been scheduled to receive cancer treatments including radiation and systemic therapy beginning tomorrow when he was admitted for COPD exacerbation on 04/12/2025 after initially coming to the ER 2 days previously. Blood pressure was high at 164/ 105 pulse 144 respiration rate 22 mild temperature and needed oxygen 15 L via OxyMask. pO2 was 39 pCO2 52 pH 7.29. Was initiated on BiPAP now on nasal cannula generally improving. Patient receiving antibiotics steroids chest physiotherapy and acetylcysteine inhaler. Patient had [id number] history of smoking quit recently. Blood culture grew out gram-positive cocci, repeat pending to be checked AM. Patient referred for oncological consultation. 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 Past Medical History Comments PMH COMMENT: History of COPD recent Dx of lung CA with spine mets status post decompression surgery 02/27/2025. Meds Home Medications and Allergies Home Medications ?Medication ?Instructions ?Recorded ?Confirmed ?Type albuterol sulfate 90 mcg/actuation 2 inh inhalation Q4H PRN shortness 08/12/24 04/12/25 History aerosol inhaler of breath or wheezing fluticasone fur. 100 mcg-umeclid 1 inh inhalation Q24H 08/12/24 04/12/25 History 62.5 mcg-vilant 25 mcg inhalat.powder (Trelegy Ellipta) nicotine 14 mg/24 hr daily 21 mg topical DAILY smoking 04/12/25 04/12/25 History transdermal patch cessation Allergies Allergy/AdvReac Type Severity Reaction Status Date / Time No Known Allergies Allergy Verified 01/26/25 10:58 Exam Vital Signs Temp Pulse Resp BP Pulse Ox O2 Del Method O2 Flow Rate 97.5 F 90 18 105/82 97 Nasal Cannula 3 04/14/25 11:23 04/14/25 11:23 04/14/25 11:23 04/14/25 11:23 04/14/25 11:23 04/14/25 11:23 04/14/25 11:23 FiO2 30 04/14/25 06:09 Narrative Exam Appears comfortable using nasal cannula for O2 Results Labs 04/14/25 05:00 04/14/25 05:00 Labs: Short CBC 04/14/25 Range/Units 05:00 WBC 8.7 (3.8-10.6) Thou/mm3 Hgb 11.5 L (13.5-16.0) g/dL Hct 35.1 L (41.0-53.0) % Plt Count 220 D (140-440) Thou/mm3 BMP 04/14/25 05:00 Sodium 143 Potassium 4.9 D Chloride 108 H Carbon Dioxide 29.6 BUN 20 Creatinine 0.8 Glucose 138 H Calcium 9.1 ABG Interpretation ABG results: 04/12/25 04/12/25 13:59 15:06 ABG pH 7.29 L 7.34 L ABG pCO2 52 H 46 ABG pO2 39 L* 164 H D ABG HCO3 25 24 ABG O2 Saturation 72 L 100 H ABG Base Excess -2 -2 Assessment and Plan Additional Assessment & Plan Additional Plan: A#1. Admitted with COPD exacerbation improving with supportive measures. A#2. Positive blood culture, receiving antibiotics, to be checked again in AM. A#3. 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 Upon discharge and general improvement of condition we expect to see him for spine radiation and systemic therapy .
[2025-04-14] MEDS: NICOTINE PATCH 7 MG/24 HR PATCH.TD24 TOP (16:14)
[2025-04-14] MEDS: ACETAMINOPHEN 325 MG TABLET 650 MG PO (19:26)
[2025-04-14] MEDS: DOXYCYCLINE INJ 100 MG in SODIUM CHLORIDE 0.9% (POP) 100 ML IV (20:20)
--- NOTE | 2025-04-14 22:11 | PC.RT ---
pt declined first treatment and stated he did not want the second treatment if he was asleep
[2025-04-15] VITALS (12 sets, daily range): BP systolic 113–126; BP diastolic 64–84; PULSE 64–108; RESP 16–26; TEMP 35.8–36.8; O2SAT 95–100
[2025-04-15 05:32] LABS: Basophils # (Auto) 0.0 Thou/mm3 (0.0-0.2); Basophils % (Auto) 0 % (0-2.5); Eosinophils # (Auto) 0.0 Thou/mm3 (0.0-0.5); Eosinophils % (Auto) 0 % (0-10); Hematocrit 34.4 % (41.0-53.0); Hemoglobin 11.6 g/dL (13.5-16.0); Immature Granulocytes Auto 0.05 Thou/mm3 (0.00-0.00); Lymphocytes % (Auto) 25 % (10-50); Mean Corpuscular HGB Conc 33.7 g/dl (31.0-37.0); Mean Corpuscular Hemoglobin 33.1 pg (25.0-35.0); Mean Corpuscular Volume 98 fL (80-100); Monocytes # (Auto) 0.9 Thou/mm3 (0.0-0.8); Monocytes % (Auto) 8 % (0-12); Neutrophils # (Auto) 7.4 Thou/mm3 (1.8-7.7); Neutrophils % (Auto) 67 % (37-80); Nucleated Red Blood Cell # 0.00 Thou/mm3 (0.00-0.00); Nucleated Red Blood Cell % 0 /100 WBC (0); Platelet Count 239 Thou/mm3 (140-440); RDW Standard Deviation 46.7 fL (35.1-43.9); Red Blood Count 3.50 Miln/mm3 (4.50-5.90); White Blood Count 11.1 Thou/mm3 (3.8-10.6)
[2025-04-15 05:54] LABS: Folate 12.77 ng/mL (>5.38); Vitamin B12 607 pg/mL (211-911)
[2025-04-15 05:57] LABS: Anion Gap 6 (7-16); BUN/Creatinine Ratio 24 Ratio (12-20); Blood Urea Nitrogen 17 mg/dL (9-23); Calcium 8.8 mg/dL (8.3-10.6); Carbon Dioxide 30.7 mMol/L (20.0-31.0); Chloride 107 mMol/L (98-107); Creatinine (Component) 0.7 mg/dL (0.6-1.3); Estimated Creatinine Clearance 90.4 mL/min (>60); Glucose 91 mg/dL (74-106); Osmolality,Calculated 288 (275-295); Potassium 4.0 mMol/L (3.4-5.1); Sodium 144 mMol/L (136-145); eGFR > 60 See Note
[2025-04-15] MEDS: ALBUTEROL/IPRATROPIUM (Duoneb) RT SOL 3 ML NEBU INH ×3 (07:19→19:15)
[2025-04-15] MEDS: FLUTICASONE/UMECLIDIN/VILANTEROL 100-62.5-25 MCG INHALER 1 PUFF INH (07:19)
[2025-04-15] MEDS: NICOTINE PATCH 7 MG/24 HR PATCH.TD24 TOP (08:42)
[2025-04-15] MEDS: ENOXAPARIN SOD INJ 40 MG/0.4 ML SYRINGE SC (08:42)
[2025-04-15] MEDS: AZITHROMYCIN INJ 500 MG in SODIUM CHLORIDE 0.9% 250 ML 250 ML 250 MG IV (08:43)
--- NOTE | 2025-04-15 08:53 | PC.SS ---
Follow up note: Waiting to repeat blood cultures. On IV antibiotic. Pt will return home upon dc.
[2025-04-15] MEDS: DOXYCYCLINE INJ 100 MG in SODIUM CHLORIDE 0.9% (POP) 100 ML IV ×2 (09:51→20:05)
--- NOTE | 2025-04-15 11:26 | ESPR_ITS ---
<Statement entered by Rodney Henning MD - 04/15/25 17:13> Patient seen and assessed in hospital bed denies having any concerning symptoms at this time. Blood cultures are still pending; moreover, oncology has been notified regarding scheduling change due to patient not being discharged prior to the appointment. Patient remains clinically stable and we expect discharge within the next 24 hours once blood cultures result. I have personally seen and examined the patient. I agree with the resident's assessment and plan as documented below. Rodney Henning DO PGY-2 Internal Medicine - GME Documentation for date of: 04/15/25 Subjective Subjective Interval history: Patient seen at bedside. No acute overnight events. Mentions little bit of cough, however feels overall improved. Patient does mention short of breath especially when getting in and out of bed and ambulating. The breathing treatment patient is getting helps with symptoms but the patient feels that does not keep the lungs open. Patient slept well and had a bowel movement today. Exam Vital Signs Temp Pulse Resp BP Pulse Ox O2 Del Method O2 Flow Rate 96.5 F L 108 H 18 113/64 97 Nasal Cannula 1.5 04/15/25 07:25 04/15/25 08:00 04/15/25 07:25 04/15/25 07:25 04/15/25 07:25 04/15/25 07:25 04/15/25 07:25 FiO2 30 04/14/25 06:09 Narrative Exam General: conversing well, on 2 L of oxygen Eyes: PERRLA, EOMI. Anicteric. Ears: No ear pain, no ear discharge, hearing grossly intact. Nose: No nasal discharge. Mouth/Throat: Moist mucous membranes, no redness, no lesions. Neck: Neck supple, non-tender, no cervical lymphadenopathy. Lungs: Clear bilaterally. Decreased air entry bilaterally. No accessory muscle use. No crackles or adventitious sounds. Cardio: Normal S1/S2, regular rhythm, no murmurs, no JVD Abdomen: Soft, no distention, no tenderness to palpation, no guarding or rebound. Extremities: Symmetrical, no significant deformities, no peripheral edema. Skin: No rashes, no lesions, warm to touch. Neuro: A/O x3, No focal neurologic deficits. Moving all 4 limbs. Objective Labs 04/16/25 08:10 04/16/25 08:10 Labs: Laboratory Results - last 24 hr 04/15/25 04:35 WBC 11.1 H RBC 3.50 L Hgb 11.6 L Hct 34.4 L MCV 98 MCH 33.1 MCHC 33.7 RDW Std Deviation 46.7 H Plt Count 239 Neut % (Auto) 67 Lymph % (Auto) 25 [place] % (Auto) 8 Eos % (Auto) 0 Baso % (Auto) 0 Neut # (Auto) 7.4 Lymph # (Auto) 2.8 [place] # (Auto) 0.9 H Eos # (Auto) 0.0 Baso # (Auto) 0.0 Immature Gran # (Auto) 0.05 H Absolute Nucleated RBC 0.00 Immature Gran % 1 H Nucleated RBC % 0 Sodium 144 Potassium 4.0 D Chloride 107 Carbon Dioxide 30.7 Anion Gap 6 L BUN 17 Creatinine 0.7 Estim Creat Clear Calc 90.4 eGFR > 60 BUN/Creatinine Ratio 24 H Glucose 91 Calculated Osmolality 288 Calcium 8.8 Vitamin B12 607 Folate 12.77 ABG Interpretation ABG results: 04/12/25 04/12/25 13:59 15:06 ABG pH 7.29 L 7.34 L ABG pCO2 52 H 46 ABG pO2 39 L* 164 H D ABG HCO3 25 24 ABG O2 Saturation 72 L 100 H ABG Base Excess -2 -2 Quality Measures Quality Measures none Advance care planning discussed with:: patient Assessment & Plan Assessment Current Active Medications: Generic Name Dose Route Start Last Admin Trade Name Freq PRN Reason Stop Dose Admin Acetaminophen 650 mg 04/12/25 14:40 04/14/25 19:26 Acetaminophen 325 Mg Tablet PO 05/12/25 14:39 650 mg Q6H PRN Administration PAIN OR FEVER > 101 Albuterol/Ipratropium 3 ml 04/12/25 19:00 04/15/25 07:19 Albuterol/Ipratropium (Duoneb) Rt Marlen 3 Ml Nebu INH 05/12/25 18:59 3 ml Q4HRRT RUY Administration Enoxaparin Sodium 40 mg 04/13/25 09:00 04/15/25 08:42 Enoxaparin Sod Inj 40 Mg/0.4 Ml Syringe SC 04/27/25 08:59 40 mg QDAY RUY Administration Fluticasone/Umeclidinium/Vilanterol 1 puff 04/13/25 12:07 04/15/25 07:19 Fluticasone/Umeclidin/Vilanterol 100-62.5-25 Mcg Inhaler INH 05/13/25 10:14 1 puff QDAY RUY Administration Doxycycline Hyclate 100 mg/ 100 mls @ 100 mls/hr 04/14/25 21:00 04/15/25 09:51 Sodium Chloride IV 04/21/25 20:59 100 mls/hr BID RUY Administration Methylprednisolone Sodium Succinate 40 mg 04/15/25 09:00 04/15/25 08:43 Methylprednisolone Sod Succ 40 Mg/Ml Vial IV 04/22/25 08:59 40 mg QDAY RUY Administration Nicotine 7 mg 04/14/25 16:00 04/15/25 08:42 Nicotine Patch 7 Mg/24 Hr Patch.Td24 TOP 05/14/25 15:59 7 mg QDAY RUY Administration Ondansetron HCl 4 mg 04/12/25 14:19 Ondansetron Inj 2 Mg/Ml Inj 2 Ml IVP 05/12/25 14:18 Q6H PRN NAUSEA OR VOMITING Protocol Sennosides 1 tab 04/12/25 14:19 Senna Tablet PO 05/12/25 14:18 QDAY PRN constipation Protocol Sodium Chloride 3 ml 04/12/25 10:18 Sodium Chloride Rt Marlen 0.9% 3 Ml Nebu INH 05/12/25 10:17 PRN PRN SOLN Plan 74-year-old male with a history of 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 Patient admitted on 04/12 for acute on chronic respiratory failure secondary to COPD exacerbation. #Acute on chronic hypoxic hypercapnic respiratory failure 08/10 #COPD exacerbation #Possible pneumonia On initial presentation patient's respiratory rate was in the 40s and was placed on oxygen but was still very tachypneic Patient's respiration improved when transitioned to BiPAP Initial ABG showed pH of 7.29, pCO2 52, pO2 39, bicarb of 25 which improved to pH 7.34, PCO2 of 46, PaO2 of 164 on BiPaP FiO2 30. Chest x-ray unconvincing for pneumonia RSV 04/12 neg WBC 17.9 --> 8.8 UA clear T 100.8 -> 97.5 LA 1.9 Plan - Continuing on nasal cannula 2 L - Stopped azithromycin 500mg IV day (04/12 - 04/15) - Started on doxycycline 100 mg twice daily (04/14 - - Methypred 40mg once daily, continue for 1 more day to complete 5-day course ?Chest physiotherapy ?Ordered Mucomyst ?Added DuoNeb inhaler every 2 hours as needed on top of the scheduled every 4 hours ?Continue fluticasone 1 puff daily #?GPC bacteremia Patient's blood cultures growing GPC bacteremia from 04/12 (1 out of 2 bottles positive), appears similar to staph Could be a contaminant contaminant vs seeding from COPD exacerbation/possible pneumonia Plan: ? 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 Wells (radiology oncologist) who agreed that the patient can follow- up next week to proceed with planning of radiation of his metastatic lung cancer - No active intervention inpatient #Nicotine dependence Patient is requesting nicotine patch Plan: Continue nicotine 7 mg topical patch Health Maintenance: Diet: regular GI prophylaxis: none DVT prophylaxis: Lovenox Antibiotics: Doxycyline CODE STATUS: FULL [facility] Case discussed with my attending Dr. Ruiz, and senior resident, Dr. Juvencio Dowell MD PGY-1 Attending Provider Attestation/Addendum I attest that I was physically present for the evaluation, physical examination, lab and imaging review of the patient with the residents. I discussed the case with the residents and agree with the findings and plans of care as documented above. Puja Ruiz MD
[2025-04-15 14:49] LABS: Lymphocytes # (Auto) 2.8 Thou/mm3 (1.0-4.8)
--- NOTE | 2025-04-15 16:51 | PC.PT ---
Patient is safe to ambulate to the bathroom with a FWW and 1 staff assist along with his O2. RN made aware.
[2025-04-16] VITALS (7 sets, daily range): BP systolic 114–134; BP diastolic 74–77; PULSE 59–96; RESP 17–29; TEMP 35.9–36.2; O2SAT 95–100; BMI 20.9
[2025-04-16] MEDS: FLUTICASONE/UMECLIDIN/VILANTEROL 100-62.5-25 MCG INHALER 1 PUFF INH (06:05)
[2025-04-16] MEDS: ALBUTEROL/IPRATROPIUM (Duoneb) RT SOL 3 ML NEBU INH (06:05)
[2025-04-16] MEDS: NICOTINE PATCH 7 MG/24 HR PATCH.TD24 TOP (08:45)
[2025-04-16] MEDS: DOXYCYCLINE INJ 100 MG in SODIUM CHLORIDE 0.9% (POP) 100 ML IV (08:46)
[2025-04-16] MEDS: ENOXAPARIN SOD INJ 40 MG/0.4 ML SYRINGE SC (08:46)
[2025-04-16 09:15] LABS: Basophils # (Auto) 0.0 Thou/mm3 (0.0-0.2); Basophils % (Auto) 0 % (0-2.5); Eosinophils # (Auto) 0.0 Thou/mm3 (0.0-0.5); Eosinophils % (Auto) 1 % (0-10); Hematocrit 38.1 % (41.0-53.0); Hemoglobin 12.8 g/dL (13.5-16.0); Immature Granulocytes Auto 0.08 Thou/mm3 (0.00-0.00); Lymphocytes # (Auto) 2.6 Thou/mm3 (1.0-4.8); Lymphocytes % (Auto) 30 % (10-50); Mean Corpuscular HGB Conc 33.6 g/dl (31.0-37.0); Mean Corpuscular Hemoglobin 32.7 pg (25.0-35.0); Mean Corpuscular Volume 97 fL (80-100); Monocytes # (Auto) 0.7 Thou/mm3 (0.0-0.8); Monocytes % (Auto) 9 % (0-12); Neutrophils # (Auto) 5.1 Thou/mm3 (1.8-7.7); Neutrophils % (Auto) 60 % (37-80); Nucleated Red Blood Cell # 0.00 Thou/mm3 (0.00-0.00); Nucleated Red Blood Cell % 0 /100 WBC (0); Platelet Count 239 Thou/mm3 (140-440); RDW Standard Deviation 46.1 fL (35.1-43.9); Red Blood Count 3.91 Miln/mm3 (4.50-5.90); White Blood Count 8.6 Thou/mm3 (3.8-10.6)
[2025-04-16 09:36] LABS: Alanine Aminotransferase 27 U/L (10-49); Albumin, Serum 3.7 gm/dL (3.4-4.8); Albumin/Globulin Ratio 1.7 (1.2-2.2); Alkaline Phosphatase 60 U/L (46-116); Anion Gap 6 (7-16); Aspartate Amino Transferase 20 U/L (0-34); BUN/Creatinine Ratio 19 Ratio (12-20); Bilirubin,Total 0.4 mg/dL (0.3-1.2); Blood Urea Nitrogen 13 mg/dL (9-23); Calcium 9.4 mg/dL (8.3-10.6); Calcium (Corrected) 9.6 mg/dL (8.5-10.1); Carbon Dioxide 32.9 mMol/L (20.0-31.0); Chloride 103 mMol/L (98-107); Creatinine (Component) 0.7 mg/dL (0.6-1.3); Estimated Creatinine Clearance 93.1 mL/min (>60); Globulin 2.2 gm/dL (2.3-3.5); Glucose 112 mg/dL (74-106); Osmolality,Calculated 284 (275-295); Potassium 3.6 mMol/L (3.4-5.1); Sodium 142 mMol/L (136-145); Total Protein 5.9 gm/dL (5.7-8.2); eGFR > 60 See Note
--- NOTE | 2025-04-16 11:56 | PD.RESDS ---
Planned Discharge Date 04/16/25 DS: Providers Provider Date of admission: 04/12/25 14:03 Primary care physician: Physician No Primary/Family Admitting Provider: Puja Ruzi MD Attending Provider on Admission: Puja Ruiz MD Consults: 04/12/25 18:04 Referral Registered Dietitian Routine Comment: Referral Wound Care Routine Comment: upper medial back surgical site 04/14/25 09:41 Consult to Oncology Routine Comment: Consulting Provider: Jeff Wells 04/14/25 16:15 Referral Nutritional Services Routine Comment: Wounds Referral OP Wound Healing Dept Routine Comment: Instructions: Surigical incision to medial upper back post fusion and CA removal 04/15/25 11:42 Referral Physical Therapy Routine Comment: Physician Instructions: Instructions: For strengthening and D/C planning. Attending Provider on DC: Puja Ruiz MD Discharging Provider: Puja Ruiz MD DS: Diagnosis Problem List Completed Was Problem List Reviewed/Reconciled?: Yes Hospital Course Hospital Course Hospital course: 74-year-old male with a history of lung cancer with mets to spine and COPD on 2-3L home O2 with cc of worsening acute respiratory distress. Patient admitted on 04/12 for acute on chronic respiratory failure 2/ to COPD exacerbation and possible CAP. ED course: Patient presented with vitals of blood pressure 164/105, pulse 144, resp 26, temperature 100.8, oxygen on 15 L via OxyMask. Initial ABG showed pH of 7.29, pCO2 52, pO2 39, bicarb of 25 which improved to pH 7.34, PCO2 of 46, PaO2 of 164 on BiPaP FiO2 30. Notable labs include WBC 17.9, hemoglobin 13.8, sodium 145, potassium 5, creatinine 0.9, troponin negative, LFTs within normal limit, procalcitonin 0.49, BNP 31. CXR did not clearly show pneumonia. Patient was transitioned to BiPAP as was very tachynic on 15L O2. Hospital course: Patient successfully was weaned off BiPAP overnight and was back to baseline O2 requirements. Patient recieved IV abx in hospital and steroids. Blood cultures remained negative. Patient worked with PT and was agreeble to getting home health. Dr. Wells, radiation oncologist, to follow up with the patient next week re: radiation planning of met lung CA. Discharge instructions: Please take doxycycline 100mg by mouth twice a day for pneumonia Please take prednisone 40mg by mouth once a day for COPD exacerbation Please take Roflumilast 250mcg by mouth once a day for severe COPD Follow-up with your Fence Installer Helper and ask for further management for severe COPD Follow-up with your oncologist Dr. Wells at the [facility] Follow-up with your PCP within 1 week of discharge If your symptoms worsen or if you develop new chest pain, worsening shortness of breath, dizziness or loss of consciousness - please come back to the ED immediately. 1) Please follow up with Surgeon in [place] for incision to your back 2) Follow up with [facility] to help monitor your incision healing. [address] [place] [address]. Call [phone] for appointment. 3) Wound care to icnsion to back: may shower than change dressing once a day and as needed for falling off. Wash hands with soap and water, remove old dressing including gauze over the wound. Cleanse well with wound cleanser spray and pat dry with gauze. Repeat washing hands with soap and water. Cut adaptic gauze in small strip to cover your wound only than secure with foam dressing. Change once a day and as needed for falling off. Admission diagnoses: #Acute on chronic hypoxic hypercapnic respiratory failure 2/2 #COPD exacerbation #Possible pneumonia #Macrocytic anemia #Hx of Lung Ca, mets to spine #Nicotine dependence Case discussed with my attending Dr. Ruiz, and senior resident, Dr. Juvencio Dowell MD PGY-1 Status at Discharge Overall status at discharge: patient is progressing back to baseline Time Spent with Patient Time spent: Greater than 30 minutes Exam Vital Signs Temp Pulse Resp BP Pulse Ox O2 Del Method O2 Flow Rate 97.1 F 89 18 133/76 H 95 Nasal Cannula 1 04/16/25 07:38 04/16/25 08:00 04/16/25 07:38 04/16/25 07:38 04/16/25 07:38 04/16/25 07:38 04/16/25 07:38 FiO2 30 04/14/25 06:09 Narrative Exam General: conversing well, on 2 L of oxygen Eyes: PERRLA, EOMI. Anicteric. Ears: No ear pain, no ear discharge, hearing grossly intact. Nose: No nasal discharge. Mouth/Throat: Moist mucous membranes, no redness, no lesions. Neck: Neck supple, non-tender, no cervical lymphadenopathy. Lungs: Clear bilaterally. Decreased air entry bilaterally. No accessory muscle use. No crackles or adventitious sounds. Cardio: Normal S1/S2, regular rhythm, no murmurs, no JVD Abdomen: Soft, no distention, no tenderness to palpation, no guarding or rebound. Extremities: Symmetrical, no significant deformities, no peripheral edema. Skin: No rashes, no lesions, warm to touch. Neuro: A/O x3, No focal neurologic deficits. Moving all 4 limbs. Discharge Plan Plan Patient Disposition: Home w/HOME HEALTH Care Plan Goals: Please take doxycycline 100mg by mouth twice a day for pneumonia Please take prednisone 40mg by mouth once a day for COPD exacerbation Please take Roflumilast 250mcg by mouth once a day for severe COPD Follow-up with your Fence Installer Helper and ask for further management for severe COPD Follow-up with your oncologist Dr. Wells at the [facility] Follow-up with your PCP within 1 week of discharge If your symptoms worsen or if you develop new chest pain, worsening shortness of breath, dizziness or loss of consciousness - please come back to the ED immediately. 1) Please follow up with Surgeon in [place] for incision to your back 2) Follow up with [facility] to help monitor your incision healing. [address] [place] [address]. Call [phone] for appointment. 3) Wound care to icnsion to back: may shower than change dressing once a day and as needed for falling off. Wash hands with soap and water, remove old dressing including gauze over the wound. Cleanse well with wound cleanser spray and pat dry with gauze. Repeat washing hands with soap and water. Cut adaptic gauze in small strip to cover your wound only than secure with foam dressing. Change once a day and as needed for falling off. If active bleeding occurs, apply tight dressing and return to MD or ER. ? Notify primary doctor or return to Emergency Room if any of the following: ? Fever above 100.6? F ? Increased pain ? Increase swelling ? Red streaks around your wound ? Drainage becomes foul smelling or changes color ? The wound is larger or deeper ? The wound looks dried out or dark ? Bleeding that does not stop with holding pressure Prescriptions/Referrals Prescriptions/Med Rec: New doxycycline monohydrate 100 mg capsule 100 mg PO BID 2 Days Qty: 4 0RF roflumilast 250 mcg tablet 250 mcg PO QDAY 28 Days Qty: 28 0RF prednisone 20 mg tablet 40 mg PO QDAY 5 Days Qty: 10 0RF Taper: Prednisone Taper 20 mg DAILY for 2 Days and 0 Hour 10 mg DAILY for 2 Days and 0 Hour 5 mg DAILY for 7 Days and 0 Hour Continued nicotine 14 mg/24 hr patch 24 hour 21 mg TOPICAL DAILY Patient Comments: PLACE 1 PATCH ONTO THE SKIN DAILY FOR 7 DAYS. albuterol sulfate 90 mcg/actuation HFA aerosol inhaler 2 inh INHALATION Q4H PRN (Reason: shortness of breath or wheezing) Trelegy Ellipta 100-62.5-25 mcg blister with device 1 inh INHALATION Q24H Patient Comments: INHALE 1 PUFF BY MOUTH ONCE DAILY Discontinued azithromycin 250 mg tablet 250 mg PO QDAY 4 Days Qty: 4 0RF Rx Instructions: Take one tablet by mouth every day prednisone 10 mg tablet 20 mg PO QDAY 6 Days Qty: 12 0RF Rx Instructions: Take two tablets by mouth every day Referrals: No Primary/Family,Physician [Primary Care Provider] Patient/Caregiver Discharge Instructions Education Materials: Nutrition for Wound Healing, Incision Care Dc, Changing Dressing Dc Print Language: Swedish Stand Alone Forms: Alicia Award Info., Patient Portal Info Letter Discharge Order Discharge Orders: Discharge (Routine); Ordered 04/16/25 Ordered By: Rodney Henning Quality Discharge Quality Measures VTE prophylaxis Attestestation MD Attestation I attest that I was physically present for the evaluation, physical examination, lab and imaging review of the patient with the residents. I discussed the case with the residents and agree with the findings and plans of care as documented above. Patient seen and examined at bedside this morning. Appears to be in mild respiratory distress but much improved compared to presentation. Saturating well on 2 L nasal cannula. Lab results are stable. Blood culture from 04/12/2025 grew Staphylococcus hominis possibly a contamination. We will discharge patient on 2 more days of doxycycline, prednisone taper, Roflumilast. Patient is recommended to follow-up with his crown and bridge technician, PCP, oncology in 1 to 2 weeks of discharge. Puja Ruiz MD
--- NOTE | 2025-04-16 12:46 | PC.NURSE ---
DISCHARGE INSTRUCTIONS AND WOUND CARE EDUCATION PROVIDED TO PATIENT AND , WAS ABLE TO DEMONSTRATE APPROPRIATE WOUND CARE ALL QUESTIONS ANSWER. WILL GO HOME TO BRING PT'S OXYGEN TANK. WAS ADVICE TO NOTIFY NURSE WHEN SHE RETURNS WITH OXYGEN TANK.
--- NOTE | 2025-04-16 12:49 | PC.NURSE ---
WOUND SUPPLIES SENT HOME WITH FAMILY.
--- NOTE | 2025-04-16 13:34 | PC.SS ---
Walkers The diagnosis creates mobility limitation that significantly impairs ability to participate in the patients activities of daily living either in their entirety, or in a reasonable time frame. Also the patient is able to safely use the walker and the patient?s mobility is sufficiently resolved with the use of the walker and cane has been ruled out.
--- NOTE | 2025-04-16 13:50 | PC.SS ---
Update: Plan is to d/c patient home with home health.
--- NOTE | 2025-04-16 15:50 | PC.SS ---
DME referral submitted on [facility]. Awaiting responses.
--- NOTE | 2025-04-17 13:53 | PC.CM ---
Patient accepted by [facility]. Start of care date 04/19.
== END 2025-04-16 14:07 | disposition home health service (06) | DRG 190 ==
LOC: SERX 13:47 → SERHOLD 15:09 → S3NX 17:07
PROVIDERS: Student in an Organized Health Care Education/Training Program; Admitting Provider Student in an Organized Health Care Education/Training Program; Emergency Provider Emergency Medicine; Visit Provider Student in an Organized Health Care Education/Training Program
DX: J44.1 Chronic obstructive pulmonary disease with (acute) exacerbation (principal); J96.21 Acute and chronic respiratory failure with hypoxia; J96.22 Acute and chronic respiratory failure with hypercapnia; C79.51 Secondary malignant neoplasm of bone; C34.90 Malignant neoplasm of unspecified part of unspecified bronchus or lung; F17.200 Nicotine dependence, unspecified, uncomplicated; K57.30 Diverticulosis of large intestine without perforation or abscess without bleeding; D53.9 Nutritional anemia, unspecified; M85.80 Other specified disorders of bone density and structure, unspecified site; Z87.891 Personal history of nicotine dependence; Z99.81 Dependence on supplemental oxygen
CPT/HCPCS: 36415; 36600; 71045; 80048; 80053; 80061; 81001; 82607; 82746; 82803; 83605; 83735; 83880; 84100; 84145; 84484; 85025; 85610; 85730; 87040; 87077; 87086; 87186; 87502; 87634; 87811; 93005; 93225; 94640; 94644; 94660; 94664; 94667; 96361; 96365; 96366; 96375; 97162; 99285; A9270; J0456; J0696; J1650; J2919; J3475; J3490; J3535; J7050; J7120

== ENCOUNTER 2025-05-08 08:45 | Outpatient (RCR) | payer OTHER, SELFPAY ==
--- NOTE | 2025-04-20 16:37 | CTCSNOTE_ITS ---
[facility] [address] [place], [place] [address] CT Simulation Note Date: 04/20/2025 MR# [id number] Name: STEPHANIE MOHAN : 1950 (A) DIAGNOSIS: C79.51 Secondary malignant neoplasm of bone (B) Patient was placed in supine position and used vaklok for immobilization purposes. (C) CT slices included T spine (D) VMAT Will be needed for maximum sparing of adjacent normal critical structures. (E) Patient tolerated the simulation well and left the room in good condition. Electronically signed by: Jeff Wells MD, MIR 04/20/2025 4:35 PM
--- NOTE | 2025-04-21 10:11 | CTCCONSULT_ITS ---
Patient: STEPHANIE MOHAN : 1950 MR#: [id number] Page 4 of 6 CONSULTATION NOTE DATE OF CONSULTATION: 04/21/2025 NAME: STEPHANIE MOHAN ACCOUNT: [id number] : 1950 AGE: 74 REFERRING PHYSICIAN: Jeff Wells MD PRIMARY PHYSICIAN: Jeff Wells MD REASON FOR VISIT: Lung adenocarcinoma ONCOLOGY HISTORY: DIAGNOSIS: Secondary malignant neoplasm of bone [ICD10] C79.51 DATE OF DIAGNOSIS: 02/27/2025 STAGE/TNM: Stage IV metastatic lung adenocarcinoma TREATMENT HISTORY: Care?Plan Start?Date Cycle Day Intent Barnett?671?NSC?adeno?almaz?oper?Pembro?Pemetrexed,?Cisplatin 04/21/2025 1 21 Palliative HISTORY OF PRESENT ILLNESS: 04/21/2025 ---74-year-old male here for establishing care for adenocarcinoma of lung.CT scan chest on 12/16/2024 showed progression of pulmonary nodular disease including new 10 mm right upper lobe and also similar sized lesion left upper lobe with subcentimeter lesions elsewhere. PET scan 02/05/2025 revealed large 3.9 cm new irregular hypermetabolic expansile bony lesion right T4 transverse process and lamina SUV 30 with intraspinal tumor extension and severe central canal stenosis at T4 level. There was also increase in size of irregular pulmonary nodule anterior left upper lobe larger in size and new multiple small bilateral upper lobe and lower lobe pulmonary nodules of various sizes. Patient was urged to go to [facility] ER where he was admitted and underwent T2-T6 posterior instrumentation 02/27/2025. Lung biopsy was considered too high risk for pneumothorax due to COPD. Final pathology revealed metastatic pulmonary adenocarcinoma corroborated by immunostains. Had colonoscopy August 2024 with 1 polyp removed benign. AFP CA 19?9 CA125 CEA PSA LDH reportedly were within normal limits. PET scan prior to surgery shows extensive and progressive lung lesionsNeurosurgeon who performed surgery 3 weeks ago will be seeing patient for follow-up next week for what appears to be well-healing scar on his upper back.patient for treatment to the postop site upper thoracic region 3000 cGy in 10 fractions via VMAT. 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 Tobacco?Pack?per?Day:?50 ETOH?Use:?social Drug?Note:?denies Social?History?Note:?live?with? MEDICATIONS: 1. albuterol - 2 As directed 2. magnesium oxide - 400 mg magnesium 1 tab twice daily 3. ondansetron - 16 mg 1 tab every 8 hrs as needed for nausea 4. Trelegy Ellipta - As directed?Palabra Meds? Medications Last Reconciled by Mayda Cohen RN on 04/21/2025 ALLERGIES: No Known Drug Allergies REVIEW OF SYSTEMS: A complete 14-point review of systems was performed and is negative except as noted in interval history. PHYSICAL EXAMINATION: VITAL SIGNS: Temperature?97.6, B/P?112/72, Height?72?inches, Oxygen?Saturation?97% Weight?155?lbs (Change?since?03/25/25:?-5?lbs) PAIN: 0 - No pain ECOG Performance Status: 2 - Symptomatic; ambulatory; capable of self-care; >50% of waking hrs. not in bed GENERAL APPEARANCE: Appears well, in no apparent distress, appropriately interactive. HEENT: Normocephalic, no temporal wasting, normal conjunctiva, no scleral icterus, normal hearing, lips without lesions, neck normal range of motion. CARDIOVASCULAR: Not assessed. PULMONARY: Normal respiratory effort, no respiratory distress or use of accessory muscles, speaking in full sentences, no tachypnea. EXTREMITIES: No pedal edema or cyanosis. SKIN: Normal skin appearance. NEUROLOGIC: Alert and oriented x4. PSHYCHIATRIC: Appropriate affect, mood normal, behavior normal, intact thought and speech. LABORATORY DATA: I have personally reviewed and interpreted each of the patient?s relevant lab tests, abnormal findings are below: Date 04/15/25 04/16/25 ??WHITE?BLOOD?COUNT?(Thou/mm3) 11.1?H 8.6 ??RED?BLOOD?COUNT?(Miln/mm3) 3.50?L 3.91?L ??HEMOGLOBIN?(gm/dl) 11.6?L 12.8?L ??HEMATOCRIT?(%) 34.4?L 38.1?L ??PLATELET?COUNT?(Thou/mm3) 239 239 ??NEUTROPHILS?%,?AUTO?(%) 67 60 ??LYMPH?%,?AUTO?(%) 25 30 ??NEUTROPHILS,?AUTO?(Thou/mm3) 7.4 5.1 ??GLUCOSE,RANDOM?(mg/dL) 91 112?H ??BLOOD?UREA?NITROGEN?(mg/dL) 17 13 ??CREATININE?(mg/dL) 0.70 0.70 ??SODIUM?(mmol/L) 144 142 ??POTASSIUM?(mmol/L) 4.0 3.6 ??CHLORIDE?(mmol/L) 107 103 ??CrCl?(CandG)?(ml/min) 96.48 96.48 ??AST/SGOT?(Unit/L) ? 20 ??ALT/SGPT?(Unit/L) ? 27 ??ALKALINE?PHOSPHATASE?(Unit/L) ? 60 ??BILIRUBIN,?TOTAL?(mg/dL) ? 0.4 ??PROTEIN?TOTAL?(gm/dl) ? 5.9 ??ALBUMIN,?SERUM?(gm/dl) ? 3.7 ??GLOBULIN?(gm/dl) ? 2.2?L ??ALBUMIN/GLOBULIN?RATIO ? 1.7 ??CALCIUM,?SERUM?(mg/dL) 8.8 9.4 ??CALCIUM?SERUM?(CORRECTED)?(mg/dL) ? 9.6 ASSESSMENT/PLAN: Metastatic lung adenocarcinoma No targetable mutations available Will send for [facility] [facility] Reviewed PET CT scan with Mr. Taylor Jeffers to proceed with radiation while waiting for chemotherapy approval Start chemo stat when available Chemotherapy orders placed Check echocardiogram hearing test PFT but do not wait for results to start treatment Port catheter already placed Magnesium and Zofran ordered IV hydration as needed Scented patient with cisplatin Alimta and Keytruda. Patient understand the risk of neuropathy as well as kidney and hearing loss secondary to cisplatin. ORDERS: Order # Description [id number] [facility] One CDX + PD-L1 staining [id number] Comprehensive Metabolic Panel - 12 + CBC with Auto Diff [id number] Thyroid Stimulating Hormone + Assay Triiodothyronine (T3) [id number] Infusion 6 Hours [id number] MRI + Brain [id number] Follow Up 4 Week [id number] CBC + Comprehensive Metabolic Panel + CEA [id number] Lab Appointment [id number] Follow Up Appointment [id number] Infusion 6 Hours [id number] CBC + Comprehensive Metabolic Panel + CEA [id number] Lab Appointment [id number] Follow Up Appointment [id number] Infusion 6 Hours [id number] CBC + Comprehensive Metabolic Panel + CEA [id number] Lab Appointment [id number] Follow Up Appointment [id number] Infusion 6 Hours [id number] CBC + Comprehensive Metabolic Panel + CEA [id number] Lab Appointment [id number] Follow Up Appointment [id number] Infusion 6 Hours [id number] CBC + Comprehensive Metabolic Panel + CEA [id number] Lab Appointment [id number] Follow Up Appointment [id number] Infusion 6 Hours [id number] CBC + Comprehensive Metabolic Panel + CEA [id number] Lab Appointment [id number] Follow Up Appointment [id number] Infusion 6 Hours [id number] CBC + Comprehensive Metabolic Panel + CEA [id number] Lab Appointment [id number] Follow Up Appointment [id number] Infusion 6 Hours [id number] CBC + Comprehensive Metabolic Panel + CEA [id number] Lab Appointment [id number] Follow Up Appointment [id number] Infusion 6 Hours [id number] CBC + Comprehensive Metabolic Panel + CEA [id number] Lab Appointment [id number] Follow Up Appointment [id number] Infusion 6 Hours [id number] CBC + Comprehensive Metabolic Panel + CEA [id number] Lab Appointment [id number] Follow Up Appointment [id number] Infusion 6 Hours [id number] CBC + Comprehensive Metabolic Panel + CEA [id number] Lab Appointment [id number] Follow Up Appointment [id number] Infusion 6 Hours [id number] CBC + Comprehensive Metabolic Panel + CEA [id number] Lab Appointment [id number] Follow Up Appointment [id number] Infusion 6 Hours [id number] CBC + Comprehensive Metabolic Panel + CEA [id number] Lab Appointment [id number] Follow Up Appointment [id number] Infusion 6 Hours [id number] CBC + Comprehensive Metabolic Panel + CEA [id number] Lab Appointment [id number] Follow Up Appointment [id number] Infusion 6 Hours [id number] CBC + Comprehensive Metabolic Panel + CEA [id number] Lab Appointment [id number] Follow Up Appointment [id number] Infusion 6 Hours [id number] CBC + Comprehensive Metabolic Panel + CEA [id number] Lab Appointment [id number] Follow Up Appointment [id number] Infusion 6 Hours [id number] CBC + Comprehensive Metabolic Panel + CEA [id number] Lab Appointment [id number] Follow Up Appointment RETURN TO CLINIC: I reviewed the diagnosis, prognosis, and recommended treatment/procedure options with the patient (and/or their legal maintenance representative), including the potential benefits, risks, side effects and alternative therapies. We also discussed the option of no treatment and the possibility of clinical trial participation, if applicable. All questions were addressed, and they demonstrated understanding. They provided informed consent to proceed with the proposed plan of care. BILLING AND COMPLIANCE: I reviewed external records from providers outside my specialty as summarized above. I spent a total of 50 minutes on this patient?s care on the day of their visit excluding time spent related to any billed procedures. This time includes time spent with the patient as well as time spent documenting in the medical record, reviewing patients records and tests, obtaining history, placing orders, communicating with other healthcare professionals, counseling the patient, family or caregiver, and/or care coordination for the diagnoses above. Electronically Signed by: Tera Martinez MD T: 10:09 AM CC: Jeff?ANA Wells PCP: Jeff Wells Referring: Jeff Wells This document was completed utilizing speech recognition software. Grammatical errors, random word insertions, pronoun errors, and incomplete sentences are an occasional consequence of this system due to software limitations, ambient noise, and hardware issues. Any formal questions or concerns about the content, text or information contained within the body of this dictation should be directly addressed to the provider for clarification.
[2025-05-04 10:27] LABS: Basophils # (Auto) 0.0 Thou/mm3 (0.0-0.2); Basophils % (Auto) 0 % (0-2.5); Eosinophils # (Auto) 0.0 Thou/mm3 (0.0-0.5); Eosinophils % (Auto) 0 % (0-10); Hematocrit 39.2 % (41.0-53.0); Hemoglobin 13.1 g/dL (13.5-16.0); Immature Granulocytes Auto 0.03 Thou/mm3 (0.00-0.00); Lymphocytes # (Auto) 0.4 Thou/mm3 (1.0-4.8); Lymphocytes % (Auto) 8 % (10-50); Mean Corpuscular HGB Conc 33.4 g/dl (31.0-37.0); Mean Corpuscular Hemoglobin 32.8 pg (25.0-35.0); Mean Corpuscular Volume 98 fL (80-100); Monocytes # (Auto) 0.1 Thou/mm3 (0.0-0.8); Monocytes % (Auto) 2 % (0-12); Neutrophils # (Auto) 5.0 Thou/mm3 (1.8-7.7); Neutrophils % (Auto) 89 % (37-80); Nucleated Red Blood Cell # 0.00 Thou/mm3 (0.00-0.00); Nucleated Red Blood Cell % 0 /100 WBC (0); Platelet Count 148 Thou/mm3 (140-440); RDW Standard Deviation 47.8 fL (35.1-43.9); Red Blood Count 3.99 Miln/mm3 (4.50-5.90); White Blood Count 5.6 Thou/mm3 (3.8-10.6)
[2025-05-04 10:54] LABS: Magnesium 2.0 mg/dL (1.6-2.6)
[2025-05-04 10:55] LABS: Carcinoembryonic Antigen 2.7 ng/mL (0.0-5.0)
[2025-05-04 10:56] LABS: Alanine Aminotransferase 18 U/L (10-49); Albumin, Serum 4.3 gm/dL (3.4-4.8); Albumin/Globulin Ratio 1.9 (1.2-2.2); Alkaline Phosphatase 66 U/L (46-116); Anion Gap 8 (7-16); Aspartate Amino Transferase 10 U/L (0-34); BUN/Creatinine Ratio 20 Ratio (12-20); Bilirubin,Total 0.5 mg/dL (0.3-1.2); Blood Urea Nitrogen 14 mg/dL (9-23); Calcium 9.4 mg/dL (8.3-10.6); Calcium (Corrected) 9.4 mg/dL (8.5-10.1); Carbon Dioxide 26.3 mMol/L (20.0-31.0); Chloride 108 mMol/L (98-107); Creatinine (Component) 0.7 mg/dL (0.6-1.3); Free T4 (Free Thyroxine) 1.17 ng/dL (0.89-1.76); Globulin 2.3 gm/dL (2.3-3.5); Glucose 139 mg/dL (74-106); Osmolality,Calculated 285 (275-295); Potassium 4.5 mMol/L (3.4-5.1); Sodium 142 mMol/L (136-145); Thyroid Stimulating Hormone 0.19 uIU/mL (0.55-4.78); Total Protein 6.6 gm/dL (5.7-8.2); eGFR > 60 See Note
== END 2025-05-08 23:59 | disposition home or self-care (01) ==
LOC: SCTC 08:45
PROVIDERS: PCP Internal Medicine; Referring Provider Radiology Therapeutic Radiology; Visit Provider Internal Medicine Hematology & Oncology
DX: Z51.0 Encounter for antineoplastic radiation therapy (principal); Z51.11 Encounter for antineoplastic chemotherapy; C34.90 Malignant neoplasm of unspecified part of unspecified bronchus or lung; C79.51 Secondary malignant neoplasm of bone
CPT/HCPCS: 36591; 77014; 77290; 77300; 77301; 77334; 77336; 77338; 77385; 80053; 82378; 83735; 84439; 84443; 85025; 96367; 96368; 96372; 96413; 96415; 96417; 99213; A4216; J1100; J1434; J1642; J2151; J2405; J3420; J3475; J3480; J3490; J7030; J9060; J9271; J9305; Q5111; A9270; G0463

== ENCOUNTER 2025-05-27 14:26 | Outpatient (RCR) | payer OTHER, SELFPAY ==
--- NOTE | 2025-05-22 08:05 | CTCTSUMM_ITS ---
[facility] [address] [place], [place] [address] Treatment Summary Date: 05/21/2025 MR#: [id number] Name: STEPHANIE MOHAN : 1950 Dx: C79.51 Referring Physician: Bryce Leung MD (A) Diagnosis: [ICD10] C79.51 Secondary malignant neoplasm of bone (B) Aim of Treatment: Palliative (C) Concomitant Chemotherapy: sequential (D) Radiation Dates: 04/27/2025 through 05/08/2025 Treatment Prescription T2 - T 6 VMAT 6 MV PHOT 3,000 cGy 10 300 cGy Approved (E) All young were treated using customized MLC Blocks (F) Finding at Discharge: When seen for first follow-up on 05/21/2025, patient appeared well and now receiving systemic therapy under Dr. Martinez's direction. (G) . Discharge Instructions and F/U Appt was given: The patient was also advised to continue follow-up with Dr. Martinez and primary care physician: Marycruz Castillo [facility] Sarah Smith Electronically signed by: Jeff Wells MD, MIR 05/22/2025 8:02 AM
[2025-05-25 13:53] LABS: Basophils # (Auto) 0.1 Thou/mm3 (0.0-0.2); Basophils % (Auto) 0 % (0-2.5); Eosinophils # (Auto) 0.1 Thou/mm3 (0.0-0.5); Eosinophils % (Auto) 1 % (0-10); Hematocrit 34.5 % (41.0-53.0); Hemoglobin 11.7 g/dL (13.5-16.0); Immature Granulocytes Auto 0.06 Thou/mm3 (0.00-0.00); Lymphocytes # (Auto) 1.6 Thou/mm3 (1.0-4.8); Lymphocytes % (Auto) 11 % (10-50); Mean Corpuscular HGB Conc 33.9 g/dl (31.0-37.0); Mean Corpuscular Hemoglobin 32.1 pg (25.0-35.0); Mean Corpuscular Volume 95 fL (80-100); Monocytes # (Auto) 1.1 Thou/mm3 (0.0-0.8); Monocytes % (Auto) 7 % (0-12); Neutrophils # (Auto) 11.8 Thou/mm3 (1.8-7.7); Neutrophils % (Auto) 80 % (37-80); Nucleated Red Blood Cell # 0.00 Thou/mm3 (0.00-0.00); Nucleated Red Blood Cell % 0 /100 WBC (0); Platelet Count 417 Thou/mm3 (140-440); RDW Standard Deviation 47.5 fL (35.1-43.9); Red Blood Count 3.65 Miln/mm3 (4.50-5.90); White Blood Count 14.7 Thou/mm3 (3.8-10.6)
[2025-05-25 14:09] LABS: Magnesium 1.8 mg/dL (1.6-2.6)
[2025-05-25 14:15] LABS: Alanine Aminotransferase 10 U/L (10-49); Albumin, Serum 4.1 gm/dL (3.4-4.8); Albumin/Globulin Ratio 1.9 (1.2-2.2); Alkaline Phosphatase 89 U/L (46-116); Anion Gap 11 (7-16); Aspartate Amino Transferase 17 U/L (0-34); BUN/Creatinine Ratio 15 Ratio (12-20); Bilirubin,Total 0.2 mg/dL (0.3-1.2); Blood Urea Nitrogen 12 mg/dL (9-23); Calcium 9.3 mg/dL (8.3-10.6); Calcium (Corrected) 9.3 mg/dL (8.5-10.1); Carbon Dioxide 27.5 mMol/L (20.0-31.0); Chloride 107 mMol/L (98-107); Creatinine (Component) 0.8 mg/dL (0.6-1.3); Free T4 (Free Thyroxine) 1.14 ng/dL (0.89-1.76); Globulin 2.2 gm/dL (2.3-3.5); Glucose 89 mg/dL (74-106); Osmolality,Calculated 287 (275-295); Potassium 3.8 mMol/L (3.4-5.1); Sodium 145 mMol/L (136-145); Thyroid Stimulating Hormone 0.74 uIU/mL (0.55-4.78); Total Protein 6.3 gm/dL (5.7-8.2); eGFR > 60 See Note
[2025-05-25 14:17] LABS: Carcinoembryonic Antigen 2.2 ng/mL (0.0-5.0)
== END 2025-06-07 23:59 | disposition home or self-care (01) ==
LOC: SCTC 14:26
PROVIDERS: Internal Medicine Hematology & Oncology; PCP Internal Medicine; Referring Provider Internal Medicine; Visit Provider Radiology Therapeutic Radiology
DX: Z51.11 Encounter for antineoplastic chemotherapy (principal); C79.51 Secondary malignant neoplasm of bone
CPT/HCPCS: 36591; 80053; 82378; 83735; 84439; 84443; 85025; 96367; 96368; 96372; 96411; 96413; 96415; 96417; 99212; A4216; J1100; J1434; J1642; J2151; J2405; J3475; J3480; J3490; J7030; J9060; J9271; J9305; Q5111; A9270; G0463

== ENCOUNTER → 2025-06-26 | Outpatient (CLI) | payer OTHER, SELFPAY ==
--- NOTE | 2025-06-26 09:15 | XR_ITS ---
Examination: MRI of brain without intravenous contrast. MRI brain with intravenous contrast. Date and time of exam: June 26, 2025 1024 hours INDICATIONS: Lung cancer diagnosis, bone cancer diagnosis, staging, evaluate for metastatic cancer Technique: Multiple axial and sagittal images of the brain to been obtained. Siemens high-resolution 1.52 Apryl short bore scanner utilized. Sagittal sections, T1 weighted images, TR 500, TE 14, are performed. Axial sections proton-density and T2-weighted images have been obtained. Inversion recovery axial images, TR 9260, TE 111, TR 2500. Diffusion weighted images, axial sections, TR 4800, TE 128, B value 1000. Axial sections, ADC map, TR 4800, TE 128. Axial and coronal images were also obtained post 14 cc gadolinium administered intravenously. Findings:: Enlargement of the sella turcica is not present. The optic chiasm and infundibular stalk are not remarkable. There is no localized enlargement of the medulla or minda. Fourth ventricle and cerebellar tonsils appear normal in position. No subacute area of hemorrhage density is seen. Fourth ventricle is midline. Mass in the cerebellopontine angle region is not evident. 7th and 8th nerve complexes exhibit symmetry Globes are symmetrical Orbital musculature including medial lateral rectus muscles do not exhibit abnormality Increased white matter signal is mild Effacement of the cortical sulcal markings is not identified. Mass effect upon the ventricular system is not identified. Diffusion-weighted images demonstrate no focus of restricted diffusion Contrast images demonstrate no abnormal enhancement Impression: Negative for acute hemorrhage, mass effect or midline shift No acute infarct Mild chronic microvascular white matter change No abnormal enhancing cerebellar or cerebral lesions
== END | disposition home or self-care (01) ==
LOC: SMRI 08:58
PROVIDERS: PCP Family Medicine; Referring Provider Internal Medicine Hematology & Oncology; Visit Provider Internal Medicine Hematology & Oncology
DX: R90.82 White matter disease, unspecified (principal); C79.51 Secondary malignant neoplasm of bone
CPT/HCPCS: 70553; A9577

== ENCOUNTER 2025-07-08 10:54 | Outpatient (RCR) | payer OTHER, SELFPAY ==
[2025-06-15 13:54] LABS: Basophils # (Auto) 0.0 Thou/mm3 (0.0-0.2); Basophils % (Auto) 0 % (0-2.5); Eosinophils # (Auto) 0.0 Thou/mm3 (0.0-0.5); Eosinophils % (Auto) 0 % (0-10); Hematocrit 32.4 % (41.0-53.0); Hemoglobin 10.9 g/dL (13.5-16.0); Immature Granulocytes Auto 0.07 Thou/mm3 (0.00-0.00); Lymphocytes # (Auto) 0.5 Thou/mm3 (1.0-4.8); Lymphocytes % (Auto) 3 % (10-50); Mean Corpuscular HGB Conc 33.6 g/dl (31.0-37.0); Mean Corpuscular Hemoglobin 32.2 pg (25.0-35.0); Mean Corpuscular Volume 96 fL (80-100); Monocytes # (Auto) 0.2 Thou/mm3 (0.0-0.8); Monocytes % (Auto) 1 % (0-12); Neutrophils # (Auto) 15.2 Thou/mm3 (1.8-7.7); Neutrophils % (Auto) 96 % (37-80); Nucleated Red Blood Cell # 0.00 Thou/mm3 (0.00-0.00); Nucleated Red Blood Cell % 0 /100 WBC (0); Platelet Count 286 Thou/mm3 (140-440); RDW Standard Deviation 54.1 fL (35.1-43.9); Red Blood Count 3.38 Miln/mm3 (4.50-5.90); White Blood Count 16.0 Thou/mm3 (3.8-10.6)
[2025-06-15 13:59] LABS: Magnesium 1.4 mg/dL (1.6-2.6)
[2025-06-15 14:03] LABS: Carcinoembryonic Antigen 2.3 ng/mL (0.0-5.0)
[2025-06-15 14:06] LABS: Alanine Aminotransferase < 7 U/L (10-49); Albumin, Serum 4.2 gm/dL (3.4-4.8); Albumin/Globulin Ratio 1.7 (1.2-2.2); Alkaline Phosphatase 102 U/L (46-116); Anion Gap 10 (7-16); Aspartate Amino Transferase 15 U/L (0-34); BUN/Creatinine Ratio 16 Ratio (12-20); Bilirubin,Total 0.3 mg/dL (0.3-1.2); Blood Urea Nitrogen 16 mg/dL (9-23); Calcium 9.3 mg/dL (8.3-10.6); Calcium (Corrected) 9.3 mg/dL (8.5-10.1); Carbon Dioxide 28.7 mMol/L (20.0-31.0); Chloride 107 mMol/L (98-107); Creatinine (Component) 1.0 mg/dL (0.6-1.3); Free T4 (Free Thyroxine) 1.19 ng/dL (0.89-1.76); Globulin 2.5 gm/dL (2.3-3.5); Glucose 121 mg/dL (74-106); Osmolality,Calculated 292 (275-295); Potassium 4.1 mMol/L (3.4-5.1); Sodium 146 mMol/L (136-145); Thyroid Stimulating Hormone 0.47 uIU/mL (0.55-4.78); Total Protein 6.7 gm/dL (5.7-8.2); eGFR > 60 See Note
[2025-07-06 12:18] LABS: Basophils # (Auto) 0.0 Thou/mm3 (0.0-0.2); Basophils % (Auto) 0 % (0-2.5); Eosinophils # (Auto) 0.0 Thou/mm3 (0.0-0.5); Eosinophils % (Auto) 0 % (0-10); Hematocrit 31.8 % (41.0-53.0); Hemoglobin 10.9 g/dL (13.5-16.0); Immature Granulocytes Auto 0.05 Thou/mm3 (0.00-0.00); Lymphocytes # (Auto) 0.4 Thou/mm3 (1.0-4.8); Lymphocytes % (Auto) 4 % (10-50); Mean Corpuscular HGB Conc 34.3 g/dl (31.0-37.0); Mean Corpuscular Hemoglobin 33.3 pg (25.0-35.0); Mean Corpuscular Volume 97 fL (80-100); Monocytes # (Auto) 0.1 Thou/mm3 (0.0-0.8); Monocytes % (Auto) 1 % (0-12); Neutrophils # (Auto) 9.8 Thou/mm3 (1.8-7.7); Neutrophils % (Auto) 94 % (37-80); Nucleated Red Blood Cell # 0.00 Thou/mm3 (0.00-0.00); Nucleated Red Blood Cell % 0 /100 WBC (0); Platelet Count 198 Thou/mm3 (140-440); RDW Standard Deviation 62.4 fL (35.1-43.9); Red Blood Count 3.27 Miln/mm3 (4.50-5.90); White Blood Count 10.4 Thou/mm3 (3.8-10.6)
[2025-07-06 12:39] LABS: Magnesium 1.3 mg/dL (1.6-2.6)
[2025-07-06 12:43] LABS: Carcinoembryonic Antigen 2.2 ng/mL (0.0-5.0)
[2025-07-06 12:47] LABS: Alanine Aminotransferase 9 U/L (10-49); Albumin, Serum 3.9 gm/dL (3.4-4.8); Albumin/Globulin Ratio 1.6 (1.2-2.2); Alkaline Phosphatase 114 U/L (46-116); Anion Gap 8 (7-16); Aspartate Amino Transferase 18 U/L (0-34); BUN/Creatinine Ratio 14 Ratio (12-20); Bilirubin,Total 0.3 mg/dL (0.3-1.2); Blood Urea Nitrogen 14 mg/dL (9-23); Calcium 9.2 mg/dL (8.3-10.6); Calcium (Corrected) 9.3 mg/dL (8.5-10.1); Carbon Dioxide 30.7 mMol/L (20.0-31.0); Chloride 101 mMol/L (98-107); Creatinine (Component) 1.0 mg/dL (0.6-1.3); Free T4 (Free Thyroxine) 1.42 ng/dL (0.89-1.76); Globulin 2.5 gm/dL (2.3-3.5); Glucose 127 mg/dL (74-106); Osmolality,Calculated 281 (275-295); Potassium 3.8 mMol/L (3.4-5.1); Sodium 140 mMol/L (136-145); Thyroid Stimulating Hormone 0.43 uIU/mL (0.55-4.78); Total Protein 6.4 gm/dL (5.7-8.2); eGFR > 60 See Note
== END 2025-07-08 23:59 | disposition home or self-care (01) ==
LOC: SCTC 10:54
PROVIDERS: PCP Internal Medicine; Referring Provider Internal Medicine; Visit Provider Internal Medicine Hematology & Oncology
DX: Z51.11 Encounter for antineoplastic chemotherapy (principal); C79.51 Secondary malignant neoplasm of bone; C34.12 Malignant neoplasm of upper lobe, left bronchus or lung
CPT/HCPCS: 36591; 80053; 82378; 83735; 84439; 84443; 85025; 96361; 96367; 96368; 96372; 96411; 96413; 96415; 96417; A4216; J1100; J1434; J1642; J1938; J2151; J2405; J2469; J3420; J3475; J3480; J3490; J7030; J9060; J9271; J9305; Q5111; A9270